=== PATIENT | female | born 1945 | race African-American/Black ===

== ENCOUNTER 2017-10-27 09:18 | Emergency (ER) | payer MEDICARE, OTHER ==
[2017-10-27] MEDS ORDERED: SODIUM CHLORIDE 0.9% 1,000 ML IV STA (09:37)
[2017-10-27] MEDS ORDERED: cloNIDine HCL 0.2 MG TAB PO STA (09:37)
--- NOTE | 2017-10-27 09:39 | ED ---
General Adult HPI - General Stated complaint: shoulder pain Time Seen by Provider: 10/27/17 09:23 Source: patient, RN notes reviewed, old records reviewed Mode of arrival: EMS Limitations: no limitations - History of Present Illness Initial comments: This is a 72-year-old female presents emergency department today with chief complaint of left shoulder pain for the past 2-3 months. Patient states that she was tired of the pain and felt she needed to be seen today. She denies any chest pain or shortness breath. Patient does arrive hypertensive, 220 over 03/2007. Patient states that she has no back or chest pain at this time. Patient states that pain is worse with range of motion of her shoulder. She is relatively a poor historian. She does not relate that she is on any blood pressure medications however review her chart shows that she is on spironolactone and metoprolol. - Related Data Home Medications Medication Instructions Recorded Confirmed Acetaminophen Tab [Tylenol Tab] 325 mg PO Q6H PRN 10/27/17 10/27/17 Docusate [Colace] 100 mg PO DAILY 10/27/17 10/27/17 Metoprolol Succinate [Toprol Xl] 50 mg PO DAILY 10/27/17 10/27/17 Robafen 100mg/5ml 200 mg PO Q4H PRN 10/27/17 10/27/17 Spironolactone [Aldactone] 25 mg PO DAILY 10/27/17 10/27/17 Previous Rx's Medication Instructions Recorded Ibuprofen 600 mg PO TID #20 tablet 10/27/17 Allergies Allergy/AdvReac Type Severity Reaction Status Date / Time No Known Allergies Allergy Verified 10/27/17 10:07 Review of Systems ROS Statement: Those systems with pertinent positive or pertinent negative responses have been documented in the HPI. ROS Other: All systems not noted in ROS Statement are negative. Past Medical History Past Medical History: Hypertension Additional Past Medical History / Comment(s): schizophrenia History of Any Multi-Drug Resistant Organisms: None Reported Past Surgical History: Unable to Obtain Past Psychological History: Schizophrenia Smoking Status: Current every day smoker Past Alcohol Use History: None Reported Past Drug Use History: None Reported General Exam - General Exam Comments Initial Comments: This is a pleasant 32-year-old female. She is -[place]. Alert and oriented. Limitations: no limitations General appearance: alert, in no apparent distress Head exam: Present: atraumatic, normocephalic, normal inspection Eye exam: Present: normal appearance, PERRL, EOMI. Absent: scleral icterus, conjunctival injection, periorbital swelling ENT exam: Present: normal exam, mucous membranes moist Neck exam: Present: normal inspection Respiratory exam: Present: normal lung sounds bilaterally. Absent: respiratory distress, wheezes, rales, rhonchi, stridor Cardiovascular Exam: Present: regular rate, normal rhythm, normal heart sounds. Absent: systolic murmur, diastolic murmur, rubs, gallop, clicks GI/Abdominal exam: Present: soft, normal bowel sounds. Absent: distended, tenderness, guarding, rebound, rigid Extremities exam: Present: normal inspection, full ROM, normal capillary refill , other (Patient has pain with range of motion of the left shoulder. Tender to palpation over the deltoid.). Absent: tenderness, pedal edema, joint swelling, calf tenderness Back exam: Present: normal inspection Neurological exam: Present: alert, oriented X3, CN II-XII intact Psychiatric exam: Present: normal affect, normal mood Skin exam: Present: warm, dry, intact, normal color. Absent: rash Course Vital Signs 10/27/17 10/27/17 09:23 10:50 Temperature 97.3 F L Pulse Rate 58 L 81 Respiratory 18 16 Rate Blood Pressure 228/110 148/67 O2 Sat by Pulse 99 100 Oximetry Medical Decision Making - Medical Decision Making 72-year-old female presented today with chief complaint of left shoulder pain for the past 3 months. The same EKG and lab values are reviewed and are unremarkable. Cardiac workup was negative. Chest x-ray was normal. Shoulder x -ray does show evidence of some arthritic changes. At this time Patient informed about her results. Acutely pain again is muscle skeletal is no nature. Patient will be discharged at this time with sling. She did arrive via EMS. The use contacting for rides home. Discharge her with anti- inflammatory medication. - Lab Data Result diagrams: 10/27/17 10:00 10/27/17 10:00 Lab Results 10/27/17 10/27/17 10/27/17 Range/Units 10:00 10:00 10:00 WBC 6.8 (3.8-10.6) k/uL RBC 5.20 (3.80-5.40) m/uL Hgb 13.8 (11.4-16.0) gm/dL Hct 42.8 (34.0-46.0) % MCV 82.3 (80.0-100.0) fL MCH 26.5 (25.0-35.0) pg MCHC 32.2 (31.0-37.0) g/dL RDW 14.4 (11.5-15.5) % Plt Count 318 (150-450) k/uL Neutrophils % 71 % Lymphocytes % 21 % Monocytes % 3 % Eosinophils % 3 % Basophils % 1 % Neutrophils # 4.8 (1.3-7.7) k/uL Lymphocytes # 1.4 (1.0-4.8) k/uL Monocytes # 0.2 (0-1.0) k/uL Eosinophils # 0.2 (0-0.7) k/uL Basophils # 0.1 (0-0.2) k/uL PT (9.0-12.0) sec INR (<1.2) APTT (22.0-30.0) sec Sodium 140 (137-145) mmol/L Potassium 4.0 (3.5-5.1) mmol/L Chloride 107 (98-107) mmol/L Carbon Dioxide 21 L (22-30) mmol/L Anion Gap 12 mmol/L BUN 13 (7-17) mg/dL Creatinine 0.86 (0.52-1.04) mg/dL Est GFR (CKD-EPI)AfAm 78 (>60 ml/min/1.73 sqM) Est GFR (CKD-EPI)NonAf 68 (>60 ml/min/1.73 sqM) Glucose 146 H (74-99) mg/dL Calcium 9.0 (8.4-10.2) mg/dL Magnesium 1.9 (1.6-2.3) mg/dL Total Bilirubin 0.4 (0.2-1.3) mg/dL AST 19 (14-36) U/L ALT 15 (9-52) U/L Alkaline Phosphatase 73 (38-126) U/L Total Creatine Kinase 53 (30-135) U/L CK-MB (CK-2) <0.2 (0.0-2.4) ng/mL CK-MB (CK-2) Rel Index Troponin I <0.012 (0.000-0.034) ng/mL NT-Pro-B Natriuret Pep pg/mL Total Protein 6.5 (6.3-8.2) g/dL Albumin 3.7 (3.5-5.0) g/dL 10/27/17 10/27/17 Range/Units 10:00 10:00 WBC (3.8-10.6) k/uL RBC (3.80-5.40) m/uL Hgb (11.4-16.0) gm/dL Hct (34.0-46.0) % MCV (80.0-100.0) fL MCH (25.0-35.0) pg MCHC (31.0-37.0) g/dL RDW (11.5-15.5) % Plt Count (150-450) k/uL Neutrophils % % Lymphocytes % % Monocytes % % Eosinophils % % Basophils % % Neutrophils # (1.3-7.7) k/uL Lymphocytes # (1.0-4.8) k/uL Monocytes # (0-1.0) k/uL Eosinophils # (0-0.7) k/uL Basophils # (0-0.2) k/uL PT 10.9 (9.0-12.0) sec INR 1.1 (<1.2) APTT 23.5 (22.0-30.0) sec Sodium (137-145) mmol/L Potassium (3.5-5.1) mmol/L Chloride (98-107) mmol/L Carbon Dioxide (22-30) mmol/L Anion Gap mmol/L BUN (7-17) mg/dL Creatinine (0.52-1.04) mg/dL Est GFR (CKD-EPI)AfAm (>60 ml/min/1.73 sqM) Est GFR (CKD-EPI)NonAf (>60 ml/min/1.73 sqM) Glucose (74-99) mg/dL Calcium (8.4-10.2) mg/dL Magnesium (1.6-2.3) mg/dL Total Bilirubin (0.2-1.3) mg/dL AST (14-36) U/L ALT (9-52) U/L Alkaline Phosphatase (38-126) U/L Total Creatine Kinase (30-135) U/L CK-MB (CK-2) (0.0-2.4) ng/mL CK-MB (CK-2) Rel Index Troponin I (0.000-0.034) ng/mL NT-Pro-B Natriuret Pep 64 pg/mL Total Protein (6.3-8.2) g/dL Albumin (3.5-5.0) g/dL 10/27/17 10:02 EKG shows sinus rhythm with sinus arrhythmia. Nonspecific T-wave abnormality. Abnormal EKG noted. Ventricular rate of 61 beats were minute period. Was a 56. QRS ration 80 ms. QT QTc is 334/336 ms. No evidence of ST elevation. Disposition Clinical Impression: Arthritis of left shoulder region Disposition: HOME SELF-CARE Condition: Good Instructions: Rotator Cuff Injury (ED) Additional Instructions: Patient advised to follow-up with primary care physician and operations support specialist. Return to the emergency department if any alarming signs or symptoms occur. Prescriptions: Ibuprofen 600 mg PO TID #20 tablet Is patient prescribed a controlled substance at d/c from ED?: No Referrals: Marlon Amos MD [Primary Care Provider] - 1-2 days Graham Levine MD [Medical Doctor] - 1-2 days Time of Disposition: 12:26
[2017-10-27 10:19] LABS: Basophils # (A) 0.1 k/uL (0-0.2); Basophils % (A) 1 %; Eosinophils # (A) 0.2 k/uL (0-0.7); Eosinophils % (A) 3 %; HCT 42.8 % (34.0-46.0); HGB 13.8 gm/dL (11.4-16.0); Lymphocytes # (A) 1.4 k/uL (1.0-4.8); Lymphocytes % (A) 21 %; MCH 26.5 pg (25.0-35.0); MCHC 32.2 g/dL (31.0-37.0); MCV 82.3 fL (80.0-100.0); Mean Platelet Volume 6.7; Monocytes # (A) 0.2 k/uL (0-1.0); Monocytes % (A) 3 %; Neutrophils # (A) 4.8 k/uL (1.3-7.7); Neutrophils % (A) 71 %; Platelet Count 318 k/uL (150-450); RDW 14.4 % (11.5-15.5); WBC 6.8 k/uL (3.8-10.6)
[2017-10-27 10:27] LABS: INR 1.1 (<1.2); Partial Thromboplastin Time 23.5 sec (22.0-30.0); Prothrombin Time 10.9 sec (9.0-12.0)
[2017-10-27 10:30] LABS: Albumin 3.7 g/dL (3.5-5.0); Magnesium 1.9 mg/dL (1.6-2.3); Total Bilirubin 0.4 mg/dL (0.2-1.3); Total Protein 6.5 g/dL (6.3-8.2)
[2017-10-27 10:52] LABS: Creatine Kinase 53 U/L (30-135)
[2017-10-27 11:05] LABS: Creatine Kinase MB <0.2 ng/mL (0.0-2.4); Troponin I <0.012 ng/mL (0.000-0.034)
--- NOTE | 2017-10-27 11:37 | XR ---
EXAMINATION TYPE: XR chest 2V DATE OF EXAM: 10/27/2017 COMPARISON: Chest x-ray July 18, 2012. HISTORY: Chest and left shoulder pain today. TECHNIQUE: Frontal and lateral views of the chest are obtained. FINDINGS: There is no focal air space opacity, pleural effusion, or pneumothorax seen. The cardiac silhouette size is stable and upper limits of normal. The osseous structures remain demineralized. IMPRESSION: No acute cardiopulmonary process. No significant change from prior.
--- NOTE | 2017-10-27 11:38 | XR ---
EXAMINATION TYPE: XR shoulder complete LT DATE OF EXAM: 10/27/2017 CLINICAL HISTORY: Chest and left shoulder pain today. TECHNIQUE: Three views of the left shoulder are obtained. COMPARISON: None. FINDINGS: There is no acute fracture/dislocation evident in the left shoulder. Demineralization is p resent. The acromioclavicular and glenohumeral joint spaces appear within normal limits. Some mild to moderate spurring from the acromion is felt present inferiorly. The visualized ribs are intact and unremarkable. IMPRESSION: As above.
[2017-10-27 12:44] VITALS: BP 142/78; PULSE 83; RESP 18; TEMP 97.8
== END 2017-10-27 12:43 | disposition home or self-care (01) ==
LOC: EC 09:18
DX: M19.012 Primary osteoarthritis, left shoulder (principal); R94.31 Abnormal electrocardiogram [ECG] [EKG]; I10 Essential (primary) hypertension; Z79.899 Other long term (current) drug therapy; F17.200 Nicotine dependence, unspecified, uncomplicated
CPT/HCPCS: 36415; 71046; 80053; 82550; 82553; 83735; 83880; 84484; 85025; 85610; 85730; 93005; 96360; 99285

== ENCOUNTER 2017-11-19 19:12 | Emergency (ER) | payer MEDICARE, OTHER ==
[2017-11-19] MEDS ORDERED: cloNIDine HCL 0.2 MG TAB PO STA (19:44)
[2017-11-19 20:35] LABS: Basophils # (A) 0.1 k/uL (0-0.2); Basophils % (A) 1 %; Eosinophils # (A) 0.2 k/uL (0-0.7); Eosinophils % (A) 2 %; HCT 39.2 % (34.0-46.0); HGB 12.5 gm/dL (11.4-16.0); Lymphocytes # (A) 1.7 k/uL (1.0-4.8); Lymphocytes % (A) 19 %; MCHC 31.8 g/dL (31.0-37.0); MCV 81.8 fL (80.0-100.0); Mean Platelet Volume 6.4; Monocytes # (A) 0.4 k/uL (0-1.0); Monocytes % (A) 5 %; Neutrophils # (A) 6.5 k/uL (1.3-7.7); Neutrophils % (A) 73 %; Platelet Count 343 k/uL (150-450); RBC 4.79 m/uL (3.80-5.40); RDW 14.2 % (11.5-15.5); WBC 8.9 k/uL (3.8-10.6)
[2017-11-19 20:43] LABS: INR 1.1 (<1.2); Prothrombin Time 10.4 sec (9.0-12.0)
[2017-11-19 20:44] LABS: Albumin 3.6 g/dL (3.5-5.0); Calcium 9.4 mg/dL (8.4-10.2); Potassium 3.5 mmol/L (3.5-5.1); Total Bilirubin 0.3 mg/dL (0.2-1.3); Total Protein 6.6 g/dL (6.3-8.2)
--- NOTE | 2017-11-19 20:47 | ED ---
General Adult HPI - General Chief complaint: Recheck/Abnormal Lab/Rx Stated complaint: hypertension Time Seen by Provider: 11/19/17 19:16 Source: patient, EMS Mode of arrival: EMS Limitations: no limitations - History of Present Illness Initial comments: Ms Ritchie is a 72yo female with PMH of HTN who presents to the ED today via EMS from her extended care facility for evaluation of asymptomatic hypertension. Patient reports that she's been in her usual state of health, she believes she has taken all of her regular medications. She has no complaints but was told that her blood pressure is too high and she had to come to the hospital. No one accompanies her from her alf facility to provide further history. Patient denies any headache, vision change, chest pain, shortness of breath, abdominal pain or change in urine output. - Related Data Home Medications Medication Instructions Recorded Confirmed Acetaminophen Tab [Tylenol Tab] 325 mg PO Q6H PRN 10/27/17 10/27/17 Docusate [Colace] 100 mg PO DAILY 10/27/17 10/27/17 Metoprolol Succinate [Toprol Xl] 50 mg PO DAILY 10/27/17 10/27/17 Robafen 100mg/5ml 200 mg PO Q4H PRN 10/27/17 10/27/17 Spironolactone [Aldactone] 25 mg PO DAILY 10/27/17 10/27/17 Previous Rx's Medication Instructions Recorded Ibuprofen 600 mg PO TID #20 tablet 10/27/17 Allergies Allergy/AdvReac Type Severity Reaction Status Date / Time No Known Allergies Allergy Verified 10/27/17 10:07 Review of Systems ROS Statement: Those systems with pertinent positive or pertinent negative responses have been documented in the HPI. ROS Other: All systems not noted in ROS Statement are negative. Past Medical History Past Medical History: Hypertension Additional Past Medical History / Comment(s): schizophrenia History of Any Multi-Drug Resistant Organisms: None Reported Past Surgical History: Unable to Obtain Past Psychological History: Schizophrenia Smoking Status: Unknown if ever smoked Past Alcohol Use History: None Reported Past Drug Use History: None Reported General Exam - General Exam Comments Initial Comments: GENERAL: Patient is well-developed and well-nourished. Patient is nontoxic and well- hydrated and is in no distress. HENT: Normocephalic, Atraumatic. Neck is soft and supple. No significant lymphadenopathy is noted. Oropharynx is clear. Moist mucous membranes. Neck has full range of motion without eliciting any pain. EYES: The sclera were anicteric and conjunctiva were pink and moist. Extraocular movements were intact and pupils were equal round and reactive to light. Eyelids were unremarkable. PULMONARY: Unlabored respirations. Good breath sounds bilaterally. No audible rales rhonchi or wheezing was noted. CARDIOVASCULAR: There is a regular rate and rhythm without any murmurs gallops or rubs. ABDOMEN: Soft and nontender with normal bowel sounds. SKIN: Skin is clear with no lesions or rashes and otherwise unremarkable. NEUROLOGIC: Alert and oriented to person, place and events leading up to coming to the hospital MUSCULOSKELETAL: Normal extremities with adequate strength and full range of motion. No lower extremity swelling or edema. No calf tenderness. LYMPHATICS: No significant lymphadenopathy is noted PSYCHIATRIC: Flat affect Limitations: no limitations Limitations: no limitations Course Vital Signs 11/19/17 11/19/17 11/19/17 19:15 19:45 20:33 Temperature 98.8 F Pulse Rate 64 64 87 Respiratory 17 17 17 Rate Blood Pressure 228/98 221/95 230/102 O2 Sat by Pulse 98 97 Oximetry 11/19/17 11/19/17 11/19/17 21:10 21:33 21:35 Temperature Pulse Rate 59 L 64 Respiratory 17 17 17 Rate Blood Pressure 240/116 188/81 172/94 O2 Sat by Pulse 98 98 98 Oximetry 11/19/17 11/19/17 21:49 22:32 Temperature 98.7 F Pulse Rate 66 64 Respiratory 17 18 Rate Blood Pressure 155/79 161/70 O2 Sat by Pulse 100 99 Oximetry EKG Findings - EKG Comments: EKG Findings:: EKG obtained at 1931 reveals sinus rhythm with a rate of 62 normal axis normal intervals no acute ST elevations or depressions there is flattening of the T waves in all leads. No evidence of acute ischemia or infarction. Medical Decision Making - Medical Decision Making The patient was seen and evaluated, presents obtained from the patient Patient with asymptomatic hypertension Labs ordered Clonidine was ordered and given with minimal improvement Patient's heart rate remained in the 60s, she is not a good candidate for IV Lopressor, IV enalapril was ordered Labs were unremarkable for mild hyperglycemia Patient's blood pressure improved significantly with IV enalapril remained asymptomatic with no complaints Patient's blood pressure significantly improved, patient stable for discharge home. Patient's long-term care facility was notified of plan for transfer back to their facility. - Lab Data Result diagrams: 11/19/17 20:22 11/19/17 20:22 Lab Results 11/19/17 11/19/17 11/19/17 Range/Units 20:22 20:22 20:22 WBC 8.9 (3.8-10.6) k/uL RBC 4.79 (3.80-5.40) m/uL Hgb 12.5 (11.4-16.0) gm/dL Hct 39.2 (34.0-46.0) % MCV 81.8 (80.0-100.0) fL MCH 26.0 (25.0-35.0) pg MCHC 31.8 (31.0-37.0) g/dL RDW 14.2 (11.5-15.5) % Plt Count 343 (150-450) k/uL Neutrophils % 73 % Lymphocytes % 19 % Monocytes % 5 % Eosinophils % 2 % Basophils % 1 % Neutrophils # 6.5 (1.3-7.7) k/uL Lymphocytes # 1.7 (1.0-4.8) k/uL Monocytes # 0.4 (0-1.0) k/uL Eosinophils # 0.2 (0-0.7) k/uL Basophils # 0.1 (0-0.2) k/uL PT 10.4 (9.0-12.0) sec INR 1.1 (<1.2) APTT 23.0 (22.0-30.0) sec Sodium 139 (137-145) mmol/L Potassium 3.5 (3.5-5.1) mmol/L Chloride 103 (98-107) mmol/L Carbon Dioxide 25 (22-30) mmol/L Anion Gap 11 mmol/L BUN 14 (7-17) mg/dL Creatinine 0.87 (0.52-1.04) mg/dL Est GFR (CKD-EPI)AfAm 77 (>60 ml/min/1.73 sqM) Est GFR (CKD-EPI)NonAf 66 (>60 ml/min/1.73 sqM) Glucose 142 H (74-99) mg/dL Calcium 9.4 (8.4-10.2) mg/dL Total Bilirubin 0.3 (0.2-1.3) mg/dL AST 14 (14-36) U/L ALT 22 (9-52) U/L Alkaline Phosphatase 78 (38-126) U/L Total Protein 6.6 (6.3-8.2) g/dL Albumin 3.6 (3.5-5.0) g/dL Disposition Clinical Impression: Hypertension Disposition: HOME SELF-CARE Condition: Good Instructions: Hypertension (ED) Is patient prescribed a controlled substance at d/c from ED?: No Referrals: Marlon Amos MD [Primary Care Provider] - 1-2 days Time of Disposition: 22:02
[2017-11-19] MEDS ORDERED: METOPROLOL TARTRATE 5 MG/5 ML VIAL IVP SCH (21:00)
[2017-11-19] MEDS ORDERED: ENALAPRILAT 1.25 MG/ML 1 ML VIAL IVP STA (21:12)
[2017-11-19] MEDS ORDERED: METOPROLOL TARTRATE 50 MG TAB PO STA (21:12)
[2017-11-19 22:33] VITALS: BP 161/70; PULSE 64; RESP 18; TEMP 98.7
== END 2017-11-19 22:40 | disposition home or self-care (01) ==
LOC: EEVIPCON 19:12 → EC 19:12
DX: I10 Essential (primary) hypertension (principal); Z79.899 Other long term (current) drug therapy
CPT/HCPCS: 36415; 80053; 85025; 85610; 85730; 96374; 99284

== ENCOUNTER 2018-02-18 17:49 | Observation (INO) | payer MEDICARE, OTHER ==
[2018-02-18] MEDS ORDERED: HYDROcodone/APAP 5-325MG 1 EACH TAB PO STA (18:17)
[2018-02-18] MEDS ORDERED: hydrALAZINE HCL 20 MG/ML 1 ML VIAL IVP STA (18:18)
--- NOTE | 2018-02-18 18:21 | ED ---
General Adult HPI - General Chief complaint: Recheck/Abnormal Lab/Rx Stated complaint: HTN Time Seen by Provider: 02/18/18 18:00 Source: patient, EMS Mode of arrival: EMS Limitations: physical limitation - History of Present Illness Initial comments: Patient is a 72-year-old female presenting for left arm pain. She presents from correction states that for the last 2-3 months, she has had left shoulder pain and denies any falls or trauma. She states that it is same as her chronic pain and is achy sensation without radiation. The pain is constant and is worse with movement. She denies any chest pain or shortness of breath as well. - Related Data Home Medications Medication Instructions Recorded Confirmed Acetaminophen Tab [Tylenol Tab] 325 mg PO Q6H PRN 10/27/17 02/18/18 Docusate [Colace] 100 mg PO DAILY 10/27/17 02/18/18 Metoprolol Succinate [Toprol Xl] 50 mg PO DAILY 10/27/17 02/18/18 Robafen 100mg/5ml 200 mg PO Q4H PRN 10/27/17 02/18/18 Spironolactone [Aldactone] 25 mg PO DAILY 10/27/17 02/18/18 Haloperidol Decanoate [Haldol 50 mg IM QMONTH 02/18/18 02/18/18 Decanoate] Lidocaine HCl [Aspercreme] 1 applic TOPICAL TID 02/18/18 02/18/18 Menthol [Biofreeze] 1 applic TOPICAL QID PRN 02/18/18 02/18/18 Allergies Allergy/AdvReac Type Severity Reaction Status Date / Time No Known Allergies Allergy Verified 02/18/18 18:12 Review of Systems ROS Statement: Those systems with pertinent positive or pertinent negative responses have been documented in the HPI. Constitutional: Negative for chills, fatigue and fever. HENT: Negative for congestion. Respiratory: Negative for chest tightness, shortness of breath and wheezing. Negative for cough Cardiovascular: Negative for chest pain and palpitations. Gastrointestinal: Negative for abdominal pain. Negative for abdominal distention , diarrhea, nausea and vomiting. Genitourinary: Negative for dysuria. Musculoskeletal: Negative for back pain, neck pain and neck stiffness. Positive for left arm pain Skin: Negative for color change. Neurological: Negative for dizziness, speech difficulty, weakness and light- headedness. Psychiatric/Behavioral: Negative for agitation and confusion. Negative for anxiety ROS Other: All systems not noted in ROS Statement are negative. Past Medical History Past Medical History: Hypertension Additional Past Medical History / Comment(s): schizophrenia History of Any Multi-Drug Resistant Organisms: None Reported Past Surgical History: Unable to Obtain Past Psychological History: Schizophrenia Smoking Status: Unknown if ever smoked Past Alcohol Use History: None Reported Past Drug Use History: None Reported General Exam - General Exam Comments Initial Comments: Constitutional: Pt is oriented to person, place, and time. Pt appears well- developed and well-nourished. No distress. HENT: Head: Normocephalic and atraumatic. Eyes: EOM are normal. Neck: Normal range of motion. Neck supple. Cardiovascular: Normal rate, regular rhythm, S1 normal, S2 normal and normal heart sounds. Exam reveals no gallop and no friction rub. No murmur heard. Pulmonary/Chest: Effort normal and breath sounds normal. No tachypnea and no bradypnea. No respiratory distress. No wheezes or rales noted. Abdominal: Soft. Bowel sounds are normal. Pt exhibits no shifting dullness, no distension, no pulsatile liver, no fluid wave, no abdominal bruit and no ascites. There is no tenderness. There is no rigidity, no rebound, no guarding, no tenderness at McBurney's point and negative Lemus's sign. Musculoskeletal: Normal range of motion.NO TTP of L shoulder or arm Neurological: Pt is alert and oriented to place, and time. No cranial nerve deficit. Skin: Skin is warm and dry. No rash noted. Pt is not diaphoretic. No erythema. No pallor. Psychiatric: Pt has a normal mood and affect. Pt behavior is normal. Thought content normal. Limitations: physical limitation Course Vital Signs 02/18/18 02/18/18 02/18/18 18:00 18:30 19:06 Temperature 98.2 F Pulse Rate 55 L 88 73 Respiratory 18 20 20 Rate Blood Pressure 201/114 194/133 179/99 O2 Sat by Pulse 99 99 99 Oximetry 02/18/18 02/18/18 02/18/18 19:30 19:45 20:00 Temperature Pulse Rate 76 68 63 Respiratory 20 14 20 Rate Blood Pressure 177/79 161/92 154/83 O2 Sat by Pulse 99 99 99 Oximetry EKG Findings - EKG Comments: EKG Findings:: EKG shows a sinus bradycardia of a rate of 54 bpm, MD interval 162, QRS 74 ms, QTC 434. There are no significant ST depressions or elevations. Medical Decision Making - Medical Decision Making Laboratory studies showed that there is no significant leukocytosis, Y derangements and there is no evidence of cardiac arrhythmia on EKG. Initial troponin was also noted to be negative and humerus x-ray was negative as well. However, the patient had a single episode while in x-ray where she completely lost consciousness although she did not fall and hit her head as x-ray technicians caught her. It is unclear whether this is secondary to the blood pressure medications and Waelder but it is thought that this is less likely as the patient had her blood pressure checked just before going to x-ray and it was not significantly changed. Nonetheless, because of this and the patient's comorbidities, patient will be placed in observation. She is also put on maintenance fluid.Explained all labs and diagnostic test results and that we will admit patient to hospital. Pt is agreeable to plan and case has been discussed with Dr. Sutton and they agree to accept the pt. - Lab Data Result diagrams: 02/18/18 18:44 02/18/18 18:44 Lab Results 02/18/18 02/18/18 02/18/18 Range/Units 18:44 18:44 18:44 WBC 8.9 (3.8-10.6) k/uL RBC 5.19 (3.80-5.40) m/uL Hgb 13.9 (11.4-16.0) gm/dL Hct 42.8 (34.0-46.0) % MCV 82.3 (80.0-100.0) fL MCH 26.7 (25.0-35.0) pg MCHC 32.4 (31.0-37.0) g/dL RDW 14.1 (11.5-15.5) % Plt Count 356 (150-450) k/uL Neutrophils % 67 % Lymphocytes % 24 % Monocytes % 5 % Eosinophils % 2 % Basophils % 1 % Neutrophils # 6.0 (1.3-7.7) k/uL Lymphocytes # 2.1 (1.0-4.8) k/uL Monocytes # 0.4 (0-1.0) k/uL Eosinophils # 0.2 (0-0.7) k/uL Basophils # 0.1 (0-0.2) k/uL PT 10.5 (9.0-12.0) sec INR 1.1 (<1.2) APTT 24.4 (22.0-30.0) sec Sodium 142 (137-145) mmol/L Potassium 4.8 (3.5-5.1) mmol/L Chloride 107 (98-107) mmol/L Carbon Dioxide 25 (22-30) mmol/L Anion Gap 10 mmol/L BUN 11 (7-17) mg/dL Creatinine 0.93 (0.52-1.04) mg/dL Est GFR (CKD-EPI)AfAm 71 (>60 ml/min/1.73 sqM) Est GFR (CKD-EPI)NonAf 62 (>60 ml/min/1.73 sqM) Glucose 99 (74-99) mg/dL Calcium 9.9 (8.4-10.2) mg/dL Magnesium 2.1 (1.6-2.3) mg/dL Total Bilirubin 0.6 (0.2-1.3) mg/dL AST 16 (14-36) U/L ALT 22 (9-52) U/L Alkaline Phosphatase 88 (38-126) U/L Troponin I (0.000-0.034) ng/mL Total Protein 7.3 (6.3-8.2) g/dL Albumin 4.0 (3.5-5.0) g/dL 02/18/18 Range/Units 18:44 WBC (3.8-10.6) k/uL RBC (3.80-5.40) m/uL Hgb (11.4-16.0) gm/dL Hct (34.0-46.0) % MCV (80.0-100.0) fL MCH (25.0-35.0) pg MCHC (31.0-37.0) g/dL RDW (11.5-15.5) % Plt Count (150-450) k/uL Neutrophils % % Lymphocytes % % Monocytes % % Eosinophils % % Basophils % % Neutrophils # (1.3-7.7) k/uL Lymphocytes # (1.0-4.8) k/uL Monocytes # (0-1.0) k/uL Eosinophils # (0-0.7) k/uL Basophils # (0-0.2) k/uL PT (9.0-12.0) sec INR (<1.2) APTT (22.0-30.0) sec Sodium (137-145) mmol/L Potassium (3.5-5.1) mmol/L Chloride (98-107) mmol/L Carbon Dioxide (22-30) mmol/L Anion Gap mmol/L BUN (7-17) mg/dL Creatinine (0.52-1.04) mg/dL Est GFR (CKD-EPI)AfAm (>60 ml/min/1.73 sqM) Est GFR (CKD-EPI)NonAf (>60 ml/min/1.73 sqM) Glucose (74-99) mg/dL Calcium (8.4-10.2) mg/dL Magnesium (1.6-2.3) mg/dL Total Bilirubin (0.2-1.3) mg/dL AST (14-36) U/L ALT (9-52) U/L Alkaline Phosphatase (38-126) U/L Troponin I <0.012 (0.000-0.034) ng/mL Total Protein (6.3-8.2) g/dL Albumin (3.5-5.0) g/dL Disposition Clinical Impression: Syncope, Left arm pain Disposition: ADMITTED IP TO THIS [facility] Condition: Fair Referrals: Marlon Amos MD [Primary Care Provider] - 1-2 days Decision to Admit Reason: Admit from EC Decision Date: 02/18/18 Decision Time: 21:28
[2018-02-18 19:15] LABS: Basophils # (A) 0.1 k/uL (0-0.2); Basophils % (A) 1 %; Eosinophils # (A) 0.2 k/uL (0-0.7); Eosinophils % (A) 2 %; HCT 42.8 % (34.0-46.0); HGB 13.9 gm/dL (11.4-16.0); Lymphocytes # (A) 2.1 k/uL (1.0-4.8); Lymphocytes % (A) 24 %; MCH 26.7 pg (25.0-35.0); MCHC 32.4 g/dL (31.0-37.0); MCV 82.3 fL (80.0-100.0); Mean Platelet Volume 6.7; Monocytes # (A) 0.4 k/uL (0-1.0); Monocytes % (A) 5 %; Neutrophils % (A) 67 %; Platelet Count 356 k/uL (150-450); RBC 5.19 m/uL (3.80-5.40); RDW 14.1 % (11.5-15.5); WBC 8.9 k/uL (3.8-10.6)
[2018-02-18 19:25] LABS: INR 1.1 (<1.2); Partial Thromboplastin Time 24.4 sec (22.0-30.0); Prothrombin Time 10.5 sec (9.0-12.0)
[2018-02-18 19:34] LABS: Calcium 9.9 mg/dL (8.4-10.2); Magnesium 2.1 mg/dL (1.6-2.3); Potassium 4.8 mmol/L (3.5-5.1); Total Bilirubin 0.6 mg/dL (0.2-1.3); Total Protein 7.3 g/dL (6.3-8.2)
--- NOTE | 2018-02-18 20:01 | XR ---
EXAMINATION TYPE: XR humerus LT DATE OF EXAM: 02/18/2018 CLINICAL HISTORY: Left shoulder pain TECHNIQUE: Two views of the left humerus are obtained. COMPARISON: None. FINDINGS: No acute fracture or dislocation. No soft tissue swelling or radiopaque foreign bodies. The limited evaluation of the left-sided ribs are unremarkable. No suspicious osseous lesions. IMPRESSION: No acute fracture or dislocation of left humerus.
[2018-02-18] MEDS ORDERED: SODIUM CHLORIDE 0.9% 1,000 ML IV STA (21:22)
[2018-02-18] MEDS ORDERED: NALOXONE 0.4 MG/ML 1 ML VIAL IV PRN (21:23)
[2018-02-19] MEDS ORDERED: ACETAMINOPHEN TAB 325 MG TAB PO PRN (09:31)
[2018-02-19] MEDS: METOPROLOL SUCCINATE (ER) 50 MG TAB.ER.24H PO SCH (10:48)
[2018-02-19] MEDS: SPIRONOLACTONE 25 MG TAB PO SCH (10:48)
[2018-02-19] MEDS: ENOXAPARIN 40 MG/0.4 ML SYRINGE SQ SCH (18:58)
[2018-02-19] MEDS: DOCUSATE 100 MG CAP PO SCH (19:00)
--- NOTE | 2018-02-19 21:04 | HP ---
HISTORY AND PHYSICAL DATE OF ADMISSION: 02/18/2018 DATE OF SERVICE: 02/19/2018 PRESENTING COMPLAINT: Left shoulder pain. HISTORY OF PRESENTING COMPLAINT: This is a 72-year-old patient who follows with visiting physician Dr. Amos. Chronic stable medical conditions include hypertension, schizophrenia and arthritis. The patient is not the best of historians. Lives at [place]. The patient comes in with complaints of pain in the left shoulder. She thinks she has had this pain for a few weeks. It is worse when she moves the pain. Some pain in the adjoining area. No shortness of breath. No dizziness, lightheadedness. The patient admitted from the ER to rule out a cardiac cause. Pain not necessarily related to exertion. No shortness of breath. REVIEW OF SYSTEMS: CONSTITUTIONAL: None. HEENT: None. RESPIRATORY: None. CARDIOVASCULAR: As above. GASTROINTESTINAL: None. GENITOURINARY: None. MUSCULOSKELETAL: Pain in joints including left shoulder. DERMATOLOGICAL: None. HEMATOLOGICAL: None. PSYCHIATRY: Slightly forgetful. NEUROLOGICAL none. PAST MEDICAL HISTORY: Hypertension, schizophrenia, arthritis. PAST SURGICAL HISTORY: Patient does not remember. SOCIAL HISTORY: Does not smoke or drink alcohol. Lives at [place]. FAMILY HISTORY: Patient does not remember. HOME MEDICATIONS: 1. Robafen 200 mg p.o. q.4 p.r.n. 2. Tylenol 325 p.o. q.6h p.r.n. 3. Biofreeze application topical q.i.d. p.r.n. 4. Haldol 50 mg IM Q monthly. 5. Aldactone 25 mg p.o. daily. 6. Toprol-XL 50 mg p.o. daily. 7. Aspercreme 1 application topical t.i.d. 8. Colace 100 mg p.o. daily. ALLERGIES: None. PHYSICAL EXAMINATION: VITAL SIGNS: Vital signs on presentation, temperature 98.2, pulse 55, respiratory 18, blood pressure 201/104. Pulse ox 99% on room air. Repeat blood pressure did come down to 154/83. GENERAL APPEARANCE: Average build, lying in bed, awake, tired-appearing. EYES: Pupils are equal. Conjunctivae normal. HEENT: External appearance of nose and ears normal. Oral cavity normal. NECK: JVD not raised. Mass not palpable. RESPIRATORY: Effort normal. LUNGS: Fair entry. CARDIOVASCULAR: 1st and 2nd sounds normal. No edema. ABDOMEN: Soft, nontender. Liver and spleen not palpable. LYMPHATICS: No lymph nodes palpable in the neck and axilla. PSYCHIATRY: Patient is able to answer simple questions. NEUROLOGICAL: Pupils equal. Cranial nerves grossly intact. Power and sensation grossly intact. MUSCULOSKELETAL: Evidence of osteoarthritis in the hands and knees. The patient has got limited range of motion of the left shoulder. LABORATORY DATA: White count 8.9, hemoglobin 13.9, potassium 4.8. Troponin x2 negative. EKG tracing personally reviewed by me shows nonspecific T-wave abnormality. Humerus x-ray no fracture noted. ASSESSMENT: 1. Left shoulder pain could be rotator cuff injury. We will get an orthopedic opinion. 2. Rule out a cardiac cause for presentation. 3. Essential hypertension. 4. Chronic schizophrenia. 5. Primary osteoarthritis. PLAN: Home medications are resumed. Serial cardiac enzymes are in place. We will get Cardiology and Orthopedic opinion. MMODL / IJN: [id number] /
[2018-02-19] MEDS: LIDOCAINE 4% CREAM 5 GM TUBE TOPICAL SCH (22:02)
[2018-02-20 03:22] VITALS: TEMP 98.3
[2018-02-20] MEDS ORDERED: DOBUTamine DRIP for NUC MED 500 MG in DEXTROSE/WATER 1 250ML.BAG IV ONE (08:32)
[2018-02-20] MEDS ORDERED: amLODIPine 5 MG TAB PO SCH (09:00)
--- NOTE | 2018-02-20 10:29 | P.CRDCN ---
History of Present Illness History of present illness: This is a pleasant 72-year-old female past medical history significant for hypertension and schizophrenia. She denies history of coronary artery disease, diabetes mellitus or dyslipidemia. She is somewhat of a poor historian. We have been asked to see her in consultation for chest pain. She states there has been a pain in the left shoulder for the last 3-4 months intermittently, worse with movement of the left arm. No specific trauma or injury she can recall. Denies chest pain, back pain, neck pain, lower arm pain, shortness of breath, dizziness, nausea, vomiting or palpitations. At the time of my exam she is seen and examined resting comfortably in bed in no acute distress. There is pain in the left shoulder with movement of the arm. Upon arrival to the emergency department blood pressure was 201/114 over 94/133. EKG reveals sinus mechanism with nonspecific T-wave abnormalities and left axis deviation. X-ray of the humerus is negative for an acute fracture or dislocation. Laboratory data reviewed, WBC 9, hemoglobin 13.66, sodium 142, potassium 4.8, magnesium 2.1, creatinine 0.93, cardiac enzymes negative 3. Current cardiac medications include Toprol 50 mg daily and Aldactone 25 mg daily. At the time of my exam: CONSTITUTIONAL: Denies fever. Denies chills. EYES: Denies blurred vision. Denies vision changes. Denies eye pain. EARS, NOSE, MOUTH & THROAT: Denies headache. Denies sore throat. Denies ear pain. CARDIOVASCULAR: Denies chest pain. Denies shortness of breath. Denies orthopnea. Denies PND. Denies palpitations. RESPIRATORY: Denies cough. GASTROINTESTINAL: Denies abdominal pain. Denies diarrhea. Denies constipation. Denies nausea. Denies vomiting. MUSCULOSKELETAL: Denies myalgias. INTEGUMENTARY: Denies pruitis. Denies rash. NEUROLOGIC: Denies numbness. Denies tingling. Denies weakness. PSYCHIATRIC: Denies anxiety. Denies depression. ENDOCRINE: Denies fatigue. Denies weight change. Denies polydipsia. Denies polyurina. GENITOURINARY: Denies burning, hematuria or urgency with micturation. HEMATOLOGIC: Denies history of anemia. Denies bleeding. Blood pressure 177/128 heart rate 70 afebrile maintaining oxygen saturation on room air GENERAL: This is a 72-year-old -[place] female in no apparent distress at the time of my examination. HEENT: Head is atraumatic, normocephalic. Pupils are equal, round. Sclerae anicteric. Conjunctivae are clear. Mucous membranes of the mouth are moist. Neck is supple. There is no jugular venous distention. No carotid bruit is heard. LUNGS: Clear to auscultation no wheezes, rales or rhonchi. No chest wall tenderness is noted on palpation or with deep breathing. HEART: Regular rate and rhythm without murmurs, rubs or gallops. S1 and S2 heard. ABDOMEN: Soft, nontender. Bowel sounds are heard. No organomegaly noted. EXTREMITIES: No evidence of peripheral edema and no calf tenderness noted. VASCULAR: Radial and dorsalis pedis pulses palpated, no evidence of clubbing. NEUROLOGIC: Patient is awake, alert and oriented x3. ASSESSMENT Left shoulder pain, reproducible and seems to be related to musckuloskeletal process. Hypertension, uncontrolled Schizophrenia PLAN An acute coronary event has been ruled out with no EKG evidence of ischemia and negative cardiac enzymes. Add amlodipine 5 mg daily and repeat blood pressure. Obtain 2D echocardiogram and doppler study to assess cardiac structure and function. Perform dobutamine stress echocardiogram to assess for stress induced ischemia. If stress test is normal she is stable from a cardiac perspective. Ongoing medical management of musculoskeltal shoulder pain. Nurse Practitioner note has been reviewed, I agree with a documented findings and plan of care. Patient was seen and examined. Past Medical History Past Medical History: Hypertension Additional Past Medical History / Comment(s): schizophrenia History of Any Multi-Drug Resistant Organisms: None Reported Past Surgical History: Unable to Obtain Past Psychological History: Schizophrenia Smoking Status: Never smoker Past Alcohol Use History: None Reported Past Drug Use History: None Reported Medications and Allergies Home Medications Medication Instructions Recorded Confirmed Type Acetaminophen Tab [Tylenol Tab] 325 mg PO Q6H PRN 10/27/17 02/18/18 History Docusate [Colace] 100 mg PO DAILY 10/27/17 02/18/18 History Metoprolol Succinate [Toprol Xl] 50 mg PO DAILY 10/27/17 02/18/18 History Robafen 100mg/5ml 200 mg PO Q4H PRN 10/27/17 02/18/18 History Spironolactone [Aldactone] 25 mg PO DAILY 10/27/17 02/18/18 History Haloperidol Decanoate [Haldol 50 mg IM QMONTH 02/18/18 02/18/18 History Decanoate] Lidocaine HCl [Aspercreme] 1 applic TOPICAL TID 02/18/18 02/18/18 History Menthol [Biofreeze] 1 applic TOPICAL QID PRN 02/18/18 02/18/18 History Allergies Allergy/AdvReac Type Severity Reaction Status Date / Time No Known Allergies Allergy Verified 02/18/18 18:12 Physical Exam Vitals: Vital Signs Temp Pulse Pulse Resp BP BP BP 02/20/18 07:32 98.3 F 57 L 15 177/128 02/20/18 03:22 16 02/20/18 03:21 98.3 F 62 16 168/94 02/20/18 00:00 98.1 F 54 L 16 148/70 02/19/18 23:32 16 02/19/18 20:00 98.3 F 62 16 02/19/18 18:28 65 178/63 02/19/18 17:29 97.8 F 63 17 02/19/18 15:26 98.1 F 89 18 168/85 02/19/18 10:49 86 20 173/82 02/19/18 08:47 98 F 79 20 191/105 BP Pulse Ox 02/20/18 07:32 98 02/20/18 03:22 02/20/18 03:21 98 02/20/18 00:00 97 02/19/18 23:32 02/19/18 20:00 155/82 95 02/19/18 18:28 02/19/18 17:29 200/100 98 02/19/18 15:26 97 02/19/18 10:49 100 02/19/18 08:47 100 Intake and Output 02/19/18 02/20/18 02/20/18 22:59 06:59 14:59 Intake Total 360 Balance 360 Intake: Oral 360 Other: Voiding Method Toilet Toilet # Voids 4 2 Weight 87.09 kg Results 02/18/18 18:44 02/18/18 18:44 Cardiac Enzymes 02/19/18 Range/Units 22:25 Troponin I <0.012 (0.000-0.034) ng/mL Current Medications Generic Name Dose Route Start Last Admin Trade Name Freq PRN Reason Stop Dose Admin Acetaminophen 325 mg 02/19/18 09:31 02/19/18 10:48 Tylenol Tab PO 325 mg Q6HR PRN Administration Fever and/ or Pain Docusate Sodium 100 mg 02/19/18 17:45 02/19/18 19:00 Colace PO 100 mg DAILY MADISYN Administration Enoxaparin Sodium 40 mg 02/19/18 17:45 02/19/18 18:58 Lovenox SQ 40 mg DAILY MADISYN Administration Lidocaine HCl 1 applic 02/19/18 22:00 02/19/18 22:02 Lmx 4 TOPICAL Not Given TID [facility] Metoprolol Succinate 50 mg 02/19/18 09:45 02/19/18 10:48 Toprol Xl PO 50 mg DAILY MADISYN Administration Naloxone HCl 0.2 mg 02/18/18 21:23 Narcan IV Q2M PRN Opioid Reversal Spironolactone 25 mg 02/19/18 09:45 02/19/18 10:48 Aldactone PO 25 mg DAILY MADISYN Administration Intake and Output 02/19/18 02/20/18 02/20/18 22:59 06:59 14:59 Intake Total 360 Balance 360 Intake: Oral 360 Other: Voiding Method Toilet Toilet # Voids 4 2 Weight 87.09 kg 02/18/18 18:44 02/18/18 18:44
--- NOTE | 2018-02-20 11:06 | ECHOF ---
Referral Reason:htn MEASUREMENTS -------- HEIGHT: 172.7 cm WEIGHT: 87.1 kg BP: 177/128 RVIDd: 2.7 cm (< 3.3) IVSd: 1.2 cm (0.6 - 1.1) LVIDd: 4.6 cm (3.9 - 5.3) LVPWd: 1.1 cm (0.6 - 1.1) IVSs: 1.5 cm LVIDs: 2.9 cm LVPWs: 1.1 cm LA Diam: 2.9 cm (2.7 - 3.8) LAESV Index (A-L): 23.65 ml/m Ao Diam: 3.2 cm (2.0 - 3.7) AV Cusp: 1.8 cm (1.5 - 2.6) LA Diam: 3.8 cm (2.7 - 3.8) MV EXCURSION: 10.412 mm (> 18.000) MV EF SLOPE: 46 mm/s (70 - 150) EPSS: 0.3 cm MV E Jl: 0.86 m/s MV DecT: 216 ms MV A Jl: 0.98 m/s MV E/A Ratio: 0.87 RAP: 5.00 mmHg RVSP: 23.58 mmHg FINDINGS -------- Sinus rhythm. This was a technically adequate study. The left ventricular size is normal. There is mild concentric left ventricular hypertrophy. Overa ll left ventricular systolic function is normal with, an EF between 55 - 60 %. The right ventricle is normal in size. The left atrial size is normal. The right atrial size is normal. The aortic valve is trileaflet, and appears structurally normal. No aortic stenosis or regurgitation. The mitral valve is normal. Mild mitral regurgitation is present. Mild tricuspid regurgitation present. There is no evidence of pulmonary hypertension. The right v entricular systolic pressure, as measured by Doppler, is 23.58mmHg. There is no pulmonic regurgitation present. The aortic root size is normal. Echo free space represents a pericardial fat pad. CONCLUSIONS -------- 1. Sinus rhythm. 2. The left ventricular size is normal. 3. There is mild concentric left ventricular hypertrophy. 4. Overall left ventricular systolic function is normal with, an EF between 55 - 60 %. 5. The left atrial size is normal. 6. The right atrial size is normal. 7. The aortic valve is trileaflet, and appears structurally normal. No aortic stenosis or regurgitati on. 8. Mild mitral regurgitation is present. 9. Mild tricuspid regurgitation present. 10. There is no evidence of pulmonary hypertension. 11. There is no pulmonic regurgitation present. 12. The aortic root size is normal. 13. Echo free space represents a pericardial fat pad. HYDRO ELECTRIC STATION OPERATOR: Maria Luz Alvarez RDCS
[2018-02-20 11:53] LABS: Cholesterol 185 mg/dL (<200); HDL Cholesterol 44 mg/dL (40-60); LDL Cholesterol,Calculated 122 mg/dL (0-99); Triglycerides 96 mg/dL (<150)
[2018-02-20 12:58] VITALS: RESP 18
[2018-02-20] MEDS: ENOXAPARIN 40 MG/0.4 ML SYRINGE SQ SCH (13:09)
[2018-02-20] MEDS: SPIRONOLACTONE 25 MG TAB PO SCH (13:09)
[2018-02-20] MEDS: DOCUSATE 100 MG CAP PO SCH (13:09)
[2018-02-20] MEDS: METOPROLOL SUCCINATE (ER) 50 MG TAB.ER.24H PO SCH (13:09)
[2018-02-20] MEDS: LIDOCAINE 4% CREAM 5 GM TUBE TOPICAL SCH ×2 (13:10→17:02)
--- NOTE | 2018-02-20 14:29 | ECHOS ---
STRESS ECHOCARDIOGRAM INDICATIONS: Chest pain. BASELINE HEART RATE: 59 BASELINE BLOOD PRESSURE: 161/91 MAXIMUM HEART RATE: 128 MAXIMUM BLOOD PRESSURE: 205/58 85% MPHR: 125 100% MPHR: 147 MAXIMUM STAGE REACHED: III TOTAL EXERCISE TIME: 9:49 CLINICAL INFORMATION: 1. Baseline rhythm is sinus mechanism, rate 59, normal axis and intervals, nonspecific ST-T wave changes. Rare PVCs. Baseline blood pressure 161/91 mmHg. Patient received an infusion of dobutamine. Electrocardiograph monitoring revealed occasional premature ventricular contractions. There was no evidence of diagnostic ischemic ST deviation. The patient reached a peak rate of 128 beats per minute which is equal to 87% of maximum predicted heart rate. 2. Peak blood pressure 205/58 mmHg. .. FINDINGS: Baseline echocardiogram revealed normal wall motion. At peak exercise, there was normal wall motion augmentation with no hypokinesis or dyskinesis. CONCLUSION: 1. Normal cardiac response to dobutamine infusion. 2. Normal stress echocardiogram with no evidence of stress-induced ischemia. MMODL / IJN: [id number] /
[2018-02-20] MEDS ORDERED: ATORVASTATIN 40 MG TAB PO SCH (14:45)
--- NOTE | 2018-02-20 14:50 | P.CNOR ---
History of Present Illness - [facility] Consult date: 02/20/18 Requesting physician: Júnior Lemus Consult reason: joint pain History of present illness: Patient is a 72-year-old female seen at bedside this afternoon consultation for left shoulder and arm pain. She was admitted through the emergency department on February 18 from her group home. She states she's had left shoulder and arm pain for the past 3 months or so. She does not recall any injury or trauma to the shoulder or arm. She has pain with range of motion of the left shoulder. She denies numbness or tingling. She has no other current complaints. Review of Systems All systems: negative Constitutional: Denies chills, Denies fever Eyes: denies blurred vision, denies pain Ears, nose, mouth and throat: Denies headache, Denies sore throat Cardiovascular: Denies chest pain, Denies shortness of breath Respiratory: Denies cough Gastrointestinal: Denies abdominal pain, Denies diarrhea, Denies nausea, Denies vomiting Genitourinary: Denies dysuria, Denies hematuria Musculoskeletal: Denies myalgias Integumentary: Denies pruritus, Denies rash Neurological: Denies numbness, Denies weakness Psychiatric: Denies anxiety, Denies depression Endocrine: Denies fatigue, Denies weight change Past Medical History Past Medical History: Hypertension Additional Past Medical History / Comment(s): schizophrenia History of Any Multi-Drug Resistant Organisms: None Reported Past Surgical History: Unable to Obtain Past Psychological History: Schizophrenia Smoking Status: Never smoker Past Alcohol Use History: None Reported Past Drug Use History: None Reported Medications and Allergies Home Medications Medication Instructions Recorded Confirmed Type Acetaminophen Tab [Tylenol Tab] 325 mg PO Q6H PRN 10/27/17 02/18/18 History Docusate [Colace] 100 mg PO DAILY 10/27/17 02/18/18 History Metoprolol Succinate [Toprol Xl] 50 mg PO DAILY 10/27/17 02/18/18 History Robafen 100mg/5ml 200 mg PO Q4H PRN 10/27/17 02/18/18 History Spironolactone [Aldactone] 25 mg PO DAILY 10/27/17 02/18/18 History Haloperidol Decanoate [Haldol 50 mg IM QMONTH 02/18/18 02/18/18 History Decanoate] Lidocaine HCl [Aspercreme] 1 applic TOPICAL TID 02/18/18 02/18/18 History Menthol [Biofreeze] 1 applic TOPICAL QID PRN 02/18/18 02/18/18 History Atorvastatin [Lipitor] 40 mg PO DAILY #90 tab 02/20/18 Rx Allergies Allergy/AdvReac Type Severity Reaction Status Date / Time No Known Allergies Allergy Verified 02/18/18 18:12 Physical Examination Inspection of the left shoulder and upper extremity is benign. There is no erythema or edema or deformity. There are no wounds. Passive range of motion shows forward elevation with minimal pain to 140. Passive abduction left shoulder to 80 with mild pain. Negative Wilder sign. Negative Neer's. She can internal and external rotate 30-40 with minimal pain. There is minimal tenderness throughout the shoulder and left upper extremity. It is not hot to touch. Motor and sensation is grossly intact with active shoulder abduction, bicep flexion, extension as well as full motor at the wrist, hand and fingers. Sensation to light touch is intact throughout the left upper extremity. There is no pathological reflexes. 2+ radial pulses present. There is less than 2 second capillary refill present. Results X-rays of the left shoulder and humerus show no fractures, lesions or masses. There is degenerative changes. No dislocation. - Labs Labs: Abnormal Lab Results - Last 24 Hours (Table) 02/18/18 Range/Units 18:44 LDL Cholesterol, Calc 122 H (0-99) mg/dL H & H 02/18/18 Range/Units 18:44 Hgb 13.9 (11.4-16.0) gm/dL Hct 42.8 (34.0-46.0) % Coagulation 02/18/18 Range/Units 18:44 INR 1.1 (<1.2) Result Diagrams: 02/18/18 18:44 02/18/18 18:44 Assessment and Plan (1) Left arm pain Narrative/Plan: It does not appear that she has a deficit to her left upper extremity as well as she has fairly good range of motion and x-rays are benign. It doesn't appear surgical intervention is immediately warranted. Would recommend trial of physical therapy. Pain management per primary team. She may follow up with our office as an outpatient as I instructed. Thank you. Current Visit: Yes Status: Acute Code(s): M79.602 - PAIN IN LEFT ARM SNOMED Code(s): 860138204 Time with Patient: Less than 30
[2018-02-20 15:43] VITALS: BP 151/94; PULSE 95
--- NOTE | 2018-02-21 05:41 | DS ---
DISCHARGE SUMMARY DATE OF ADMISSION: 02/18/2018 DATE OF DISCHARGE: 02/20/2018 FINAL DIAGNOSES: 1. Left shoulder pain, could be musculoskeletal. 2. Essential hypertension. 3. Chronic schizophrenia. 4. Primary osteoarthritis. HOSPITAL COURSE: This patient presented with left shoulder pain. Troponins were negative. LDL came back at 122. A 2-D echocardiogram showed the EF of 55% to 60%. X-ray of the left shoulder was unremarkable. Patient did undergo dobutamine stress echocardiogram negative for ischemia. The patient was cleared by Cardiology. CONSULTATIONS: Dr. Rodriguez from Cardiology and Dr. Júnior Lemus from Orthopedics for the left shoulder. Care was discussed with the patient. Questions were answered. PHYSICAL EXAMINATION: On examination, temperature 98.3, pulse 57, respiration 15, blood pressure 151/94, pulse ox 98% on room air. LUNGS: Fair entry. CARDIOVASCULAR: First and second sounds normal. DISCHARGE MEDICATIONS: 1. Tylenol 325 q.6 p.r.n. 2. Colace 100 mg p.o. daily. 3. Toprol XL 50 mg a day. 4. Robafen 200 mg q.4 p.r.n. 5. Aldactone 25 mg a day. 6. Haldol 50 mg IM q. monthly. 7. Lidocaine 1 application topical t.i.d. 8. Biofreeze topical q.i.d. p.r.n. 9. Lipitor 40 mg p.o. daily. 10.Norvasc 5 mg p.o. daily. Follow up with Dr. Rodriguez in 3 weeks; Dr. Amos from [facility] in 3 days; Dr. Lemus in one week. MMODL / IJN: [id number] /
== END 2018-02-20 17:22 | disposition home or self-care (01) ==
LOC: EC 17:49 → 1SOBS 21:28
PROVIDERS: ADMIT Hospitalist; ATTEND Hospitalist
DX: M25.512 Pain in left shoulder (principal); I10 Essential (primary) hypertension; G89.29 Other chronic pain; F20.9 Schizophrenia, unspecified; M79.602 Pain in left arm; M19.90 Unspecified osteoarthritis, unspecified site; M19.91 Primary osteoarthritis, unspecified site; Z79.899 Other long term (current) drug therapy
CPT/HCPCS: 93005 ×2; 96372 ×2; 96374; 99285; 36415; 93306; 93351; 80061; 80053; 83735; 84484 ×2; 85025; 85610; 85730; 73060; G0378 ×3; J1250; J0360; J1650 ×2

== ENCOUNTER 2021-09-30 10:29 | Inpatient (IN) | payer MEDICARE, OTHER ==
--- NOTE | 2021-09-30 10:52 | ED ---
General Adult HPI - General Chief complaint: Extremity Injury, Lower Stated complaint: Weakness, Leg Swelling Time Seen by Provider: 09/30/21 10:35 Source: patient, EMS, RN notes reviewed Mode of arrival: EMS Limitations: no limitations - History of Present Illness Initial comments: This a 76-year-old female presents emergency Department chief complaint of right foot pain. Patient states she's had soreness last 2 days states it hurts when she ambulates. Patient currently lives at [facility] which they called EMS to come for evaluation. Patient denies any trauma. She states she does not feel weak staff reports that she seems any more weak than usual. No chest pain of breath no fevers chills no nausea vomiting diarrhea constipation no other complaints. - Related Data Home Medications Medication Instructions Recorded Confirmed Acetaminophen Tab [Tylenol] 325 mg PO Q6H PRN 10/27/17 02/18/18 Docusate [Colace] 100 mg PO DAILY 10/27/17 02/18/18 Metoprolol Succinate [Toprol Xl] 50 mg PO DAILY 10/27/17 02/18/18 Robafen 100mg/5ml 200 mg PO Q4H PRN 10/27/17 02/18/18 Spironolactone [Aldactone] 25 mg PO DAILY 10/27/17 02/18/18 Haloperidol Decanoate [Haldol D] 50 mg IM QMONTH 02/18/18 02/18/18 Menthol [Biofreeze] 1 applic TOPICAL QID PRN 02/18/18 02/18/18 lidocaine HCL [Aspercreme 1 applic TOPICAL TID 02/18/18 02/18/18 Lidocaine] Previous Rx's Medication Instructions Recorded Atorvastatin [Lipitor] 40 mg PO DAILY #90 tab 02/20/18 amLODIPine [Norvasc] 5 mg PO DAILY #30 tab 02/20/18 Allergies Allergy/AdvReac Type Severity Reaction Status Date / Time No Known Allergies Allergy Verified 09/30/21 10:43 Review of Systems ROS Statement: Those systems with pertinent positive or pertinent negative responses have been documented in the HPI. ROS Other: All systems not noted in ROS Statement are negative. Past Medical History Past Medical History: Hypertension Additional Past Medical History / Comment(s): schizophrenia History of Any Multi-Drug Resistant Organisms: None Reported Past Surgical History: Unable to Obtain Past Psychological History: Schizophrenia Smoking Status: Unknown if ever smoked Past Alcohol Use History: None Reported Past Drug Use History: None Reported General Exam Limitations: no limitations General appearance: alert, in no apparent distress Head exam: Present: atraumatic, normocephalic, normal inspection Eye exam: Present: normal appearance, PERRL, EOMI. Absent: scleral icterus, conjunctival injection, periorbital swelling ENT exam: Present: normal exam, mucous membranes moist Neck exam: Present: normal inspection, full ROM. Absent: tenderness, meningismus, lymphadenopathy Respiratory exam: Present: normal lung sounds bilaterally. Absent: respiratory distress, wheezes, rales, rhonchi, stridor Cardiovascular Exam: Present: regular rate, normal rhythm, normal heart sounds. Absent: systolic murmur, diastolic murmur, rubs, gallop, clicks GI/Abdominal exam: Present: soft, normal bowel sounds. Absent: distended, tenderness, guarding, rebound, rigid Extremities exam: Present: other (Right foot no iris deformity neurovascular intact there is tenderness of the lateral portion of the foot there is no swelling no erythema no foreign body no ulcerations. No malleolar tenderness) Neurological exam: Present: alert Skin exam: Present: warm, dry, intact, normal color. Absent: rash Course Vital Signs 09/30/21 10:34 Temperature 98.0 F Pulse Rate 63 Respiratory 18 Rate Blood Pressure 128/74 O2 Sat by Pulse 96 Oximetry Medical Decision Making - Medical Decision Making 76-year-old presented for denies weakness from [facility]. Patient also complaints right foot pain. X-rays negative. Patient does have evidence of hyponatremia. Patient started maintenance fluids. Case discussed with Dr. Sutton - Lab Data Result diagrams: 09/30/21 10:49 09/30/21 10:49 Lab Results 09/30/21 09/30/21 Range/Units 10:49 10:49 WBC 7.7 (3.8-10.6) k/uL RBC 4.70 (3.80-5.40) m/uL Hgb 12.8 (11.4-16.0) gm/dL Hct 38.4 (34.0-46.0) % MCV 81.8 (80.0-100.0) fL MCH 27.3 (25.0-35.0) pg MCHC 33.4 (31.0-37.0) g/dL RDW 13.4 (11.5-15.5) % Plt Count 327 (150-450) k/uL MPV 6.4 Neutrophils % 64 % Lymphocytes % 26 % Monocytes % 6 % Eosinophils % 3 % Basophils % 1 % Neutrophils # 4.9 (1.3-7.7) k/uL Lymphocytes # 2.0 (1.0-4.8) k/uL Monocytes # 0.4 (0-1.0) k/uL Eosinophils # 0.2 (0-0.7) k/uL Basophils # 0.1 (0-0.2) k/uL Sodium 125 L (137-145) mmol/L Potassium 4.2 (3.5-5.1) mmol/L Chloride 92 L (98-107) mmol/L Carbon Dioxide 24 (22-30) mmol/L Anion Gap 9 mmol/L BUN 17 (7-17) mg/dL Creatinine 1.02 (0.52-1.04) mg/dL Est GFR (CKD-EPI)AfAm 62 (>60 ml/min/1.73 sqM) Est GFR (CKD-EPI)NonAf 54 (>60 ml/min/1.73 sqM) Glucose 108 H (74-99) mg/dL Calcium 9.1 (8.4-10.2) mg/dL Disposition Clinical Impression: Hyponatremia, Foot pain Disposition: ADMITTED IP TO THIS HOSP Condition: Fair Referrals: Marlon Amos MD [Primary Care Provider] - 1-2 days Time of Disposition: 11:34
[2021-09-30 11:02] LABS: Basophils # (A) 0.1 k/uL (0-0.2); Basophils % (A) 1 %; Eosinophils # (A) 0.2 k/uL (0-0.7); Eosinophils % (A) 3 %; HCT 38.4 % (34.0-46.0); HGB 12.8 gm/dL (11.4-16.0); Lymphocytes % (A) 26 %; MCH 27.3 pg (25.0-35.0); MCHC 33.4 g/dL (31.0-37.0); MCV 81.8 fL (80.0-100.0); Mean Platelet Volume 6.4; Monocytes # (A) 0.4 k/uL (0-1.0); Monocytes % (A) 6 %; Neutrophils # (A) 4.9 k/uL (1.3-7.7); Neutrophils % (A) 64 %; Platelet Count 327 k/uL (150-450); RDW 13.4 % (11.5-15.5); WBC 7.7 k/uL (3.8-10.6)
[2021-09-30 11:13] LABS: Calcium 9.1 mg/dL (8.4-10.2)
[2021-09-30 11:22] LABS: Potassium 4.2 mmol/L (3.5-5.1)
--- NOTE | 2021-09-30 11:34 | XR ---
EXAMINATION TYPE: XR foot complete RT DATE OF EXAM: 09/30/2021 CLINICAL HISTORY: Lateral pain. TECHNIQUE: Frontal, lateral, and oblique images of the right foot are obtained. COMPARISON: None FINDINGS: There is no acute fracture/dislocation evident in the right foot. The joint spaces in the right foot appear within normal limits. Accessory ossicles near medial base of navicular bone and la teral aspect of the cuboid bone are present. Small superior and inferior calcaneal spurs. Small spur at the lateral base of first proximal phalanx on oblique image. The overlying soft tissue appears unr emarkable. IMPRESSION: As above.
[2021-09-30] MEDS ORDERED: SODIUM CHLORIDE 0.9% 500 ML 500 ML IV ONE (12:14)
[2021-09-30] MEDS: SODIUM CHLORIDE 0.9% 1,000 ML IV SCH (12:31)
[2021-09-30] MEDS ORDERED: NALOXONE 0.4 MG/ML 1 ML VIAL IV PRN (15:46)
[2021-09-30] MEDS ORDERED: ACETAMINOPHEN TAB 325 MG TAB PO PRN (15:46)
[2021-09-30] MEDS ORDERED: CALCIUM CARBONATE 500 MG CHEWABLE PO PRN (15:46)
[2021-09-30] MEDS ORDERED: ONDANSETRON 4 MG/2 ML VIAL IVP PRN (15:46)
--- NOTE | 2021-09-30 16:02 | P.HPIM ---
History of Present Illness H&P Date: 09/30/21 Chief Complaint: Low-sodium This is a 76-year-old patient who follows with visiting physicians Dr. Amos. Chronic stable medical conditions include essential hypertension, schizophrenia, primary osteoarthritis. Patient is resident of [facility]. EMS was called out as patient complaining of pain in the right foot for last 2 days. Pain is more near the toes. Patient does seem to use a cane at times. Decreased appetite. Patient discovered to have a sodium of 125 in the ER. And a serum osmolality of 264. Denies any obvious nausea and vomiting. No fever no chills. Denies any obvious injury. This answered questions slowly. Review of systems: GEN.: Tired with decreased appetite EYES: None HEENT: None NECK: None RESPIRATORY: None CARDIOVASCULAR: None GASTROINTESTINAL: None GENITOURINARY: None MUSCULOSKELETAL: Joint pains LYMPHATICS: None HEMATOLOGICAL: None PSYCHIATRY: None NEUROLOGICAL: None Past medical history include: Osteoarthritis, schizophrenia, hypertension, latent TB Social history: No history of smoking or alcohol. Lives at [facility]. Family history: Reviewed, noncontributory to presentation Physical examination: VITAL SIGNS: 98, 63, 18, 128/74, 96% room air GENERAL: BMI 25.1, laying in bed awake tired. EYES: Pupils equal. Conjunctiva normal. HEENT: External appearance of nose and ears normal, oral cavity dry mucous membranes. NECK: JVD not raised; masses not palpable. HEART: First and second heart sounds are normal; no edema. LUNGS: Respiratory rate normal; clear to auscultation. ABDOMEN: Soft, nontender, liver spleen not palpable, no masses palpable. PSYCH: Answers questions slowly. Mood and affect flatl. MUSCULOSKELETAL:No Clubbing/cyanosis;muscles-grossly intact. Evidence of OA. Both landed feet NEUROLOGICAL: Cranial nerves grossly intact; no facial asymmetry, power and sensation grossly intact. LYMPHATICS: No lymph nodes palpable in the axilla and neck INVESTIGATIONS, reviewed in the clinical context: White count 7.7 hemoglobin 12.8 platelets 327 sodium 125 potassium 4.2 BUN 17 creatinine 1.02 serum osmolality 264 urine osmolality 238 EKG tracing personally reviewed by me-normal sinus rhythm. Rate 61 Foot x-ray film personally reviewed by me: Possibly early OA. Assessment and plan: -Hypoosmolar, hyponatremia, possibly hypovolemic. Patient is dry mucous membrane. Start patient on normal saline. Restrict free fluid. Add salt tablets. Repeat labs in the morning. DC hydrochlorothiazide. Hold Aldactone. -Right foot early osteoarthritis. We will advise comfortable footwear. Tylenol. Warm compress to right foot when necessary. -Essential hypertension Toprol-XL 50 mg twice a day -Chronic schizophrenia Seroquel 50 mg twice a day. -Chronic insomnia Melatonin 3 mg daily at bedtime -Primary osteoarthritis Tylenol when necessary. Voltaren gel Free fluid avoid. Normal saline. Sodium tablets. Resume all medications. Fall precautions. Repeat labs in the morning. Subcu heparin. Past Medical History Past Medical History: Hypertension, Osteoarthritis (OA) Additional Past Medical History / Comment(s): Latent TB/unable to take PPD/chest xrays are negative. History of Any Multi-Drug Resistant Organisms: None Reported Past Surgical History: Unable to Obtain Past Anesthesia/Blood Transfusion Reactions: Unable to Obtain Smoking Status: Never smoker - Past Family History Mother Family Medical History: No Reported History Father Family Medical History: No Reported History Medications and Allergies Home Medications Medication Instructions Recorded Confirmed Type Metoprolol Succinate [Toprol Xl] 50 mg PO DAILY@0800 10/27/17 09/30/21 History Spironolactone [Aldactone] 25 mg PO DAILY@0800 10/27/17 09/30/21 History Haloperidol Decanoate [Haldol D] 50 mg IM Q30D 02/18/18 09/30/21 History Menthol [Biofreeze] 1 applic TOPICAL QID PRN 02/18/18 09/30/21 History Diclofenac Sodium Gel [Voltaren 2 gm TOPICAL TID@0800,1500,199909/30/21 09/30/21 History Gel] Folic Acid 0.4mg 0.4 mg PO HS@199909/30/21 09/30/21 History Lactulose 20 gm PO HS@199909/30/21 09/30/21 History Melatonin 3 mg PO HS@199909/30/21 09/30/21 History QUEtiapine [SEROquel] 50 mg PO BID@0800,199909/30/21 09/30/21 History Sennosides/Docusate Sodium [Senna 2 tab PO HS@199909/30/21 09/30/21 History Plus 8.6-50 mg Tablet] hydroCHLOROthiazide [Hydrodiuril] 25 mg PO DAILY@0800 09/30/21 09/30/21 History Allergies Allergy/AdvReac Type Severity Reaction Status Date / Time No Known Allergies Allergy Verified 09/30/21 12:38 Physical Exam Vitals: Vital Signs Temp Pulse Resp BP Pulse Ox 09/30/21 15:29 97.8 F 55 L 121/62 09/30/21 10:34 98.0 F 63 18 128/74 96 Intake and Output 09/30/21 09/30/21 09/30/21 06:59 14:59 22:59 Other: Weight 77.111 kg Results CBC & Chem 7: 09/30/21 10:49 09/30/21 10:49 Labs: Abnormal Lab Results - Last 24 Hours (Table) 09/30/21 09/30/21 Range/Units 10:49 10:49 Sodium 125 L (137-145) mmol/L Chloride 92 L (98-107) mmol/L Glucose 108 H (74-99) mg/dL Osmolality 264 L (280-301) mosm/kg Thrombosis Risk Factor Assmnt - Choose All That Apply Any of the Below Risk Factors Present?: Yes Each Factor Represents 1 point: Obesity (BMI >25) Other Risk Factors: Yes Each Risk Factor Represents 3 Points: Age 75 years or older Other congenital or acquired thrombophilia - If yes, enter type in comment: No Thrombosis Risk Factor Assessment Total Risk Factor Score: 4 Thrombosis Risk Factor Assessment Level: Moderate Risk
[2021-09-30] MEDS: SODIUM CHLORIDE TAB 1 GM TAB PO SCH ×2 (16:39→20:37)
[2021-09-30] MEDS: ENOXAPARIN 40 MG/0.4 ML SYRINGE SQ SCH (16:39)
[2021-09-30] MEDS: MELATONIN 3 MG TABLET PO SCH (20:36)
[2021-09-30] MEDS: SENNOSIDES-DOCUSATE SODIUM 1 EACH TAB PO SCH (20:36)
[2021-09-30] MEDS: LACTULOSE 20 GM/30 ML CUP PO SCH (20:36)
[2021-09-30] MEDS: FOLIC ACID 1 MG TAB PO SCH (20:36)
[2021-09-30] MEDS: QUEtiapine 50 MG TAB PO SCH (20:37)
[2021-09-30] MEDS: DICLOFENAC SODIUM GEL 100 GM TUBE TOPICAL SCH (20:38)
[2021-10-01] MEDS: SODIUM CHLORIDE 0.9% 1,000 ML IV SCH ×3 (00:48→16:03)
[2021-10-01 07:36] LABS: African American GFR (CKD) 75 (>60 ml/min/1.73 sqM); Anion Gap 9 mmol/L; Blood Urea Nitrogen 12 mg/dL (7-17); Calcium 8.7 mg/dL (8.4-10.2); Carbon Dioxide 23 mmol/L (22-30); Chloride 102 mmol/L (98-107); Glucose 105 mg/dL (74-99); Non-African American GFR(CKD) 65 (>60 ml/min/1.73 sqM); Potassium 3.6 mmol/L (3.5-5.1); Sodium 134 mmol/L (137-145)
[2021-10-01] MEDS: METOPROLOL SUCCINATE (ER) 50 MG TAB.ER.24H PO SCH (08:18)
[2021-10-01] MEDS: SODIUM CHLORIDE TAB 1 GM TAB PO SCH ×3 (08:18→19:35)
[2021-10-01] MEDS: QUEtiapine 50 MG TAB PO SCH ×2 (08:18→19:33)
[2021-10-01] MEDS: ENOXAPARIN 40 MG/0.4 ML SYRINGE SQ SCH (08:19)
[2021-10-01] MEDS: DICLOFENAC SODIUM GEL 100 GM TUBE TOPICAL SCH ×3 (08:21→19:33)
--- NOTE | 2021-10-01 16:14 | P.PN ---
Progress Note - Text Progress Note Date: 10/01/21 Chief Complaint: Low-sodium This is a 76-year-old patient who follows with visiting physicians Dr. Amos. Chronic stable medical conditions include essential hypertension, schizophrenia, primary osteoarthritis. Patient is resident of [facility]. EMS was called out as patient complaining of pain in the right foot for last 2 days. Pain is more near the toes. Patient does seem to use a cane at times. Decreased appetite. Patient discovered to have a sodium of 125 in the ER. And a serum osmolality of 264. Denies any obvious nausea and vomiting. No fever no chills. Denies any obvious injury. This answered questions slowly. Admitted with hypoosmolar, hyponatremia. Right foot pain felt to be arthritis. Started on fluid restriction, saline. October 01: Oral intake better. Sodium coming up at her serum osmolality better. Sleeve ordered for right foot. Active Medications Acetaminophen (Acetaminophen Tab 325 Mg Tab) 650 mg PO Q6HR PRN PRN Reason: Mild Pain or Fever > 100.5 Calcium Carbonate/Glycine (Calcium Carbonate 500 Mg Chewable) 1,000 mg PO Q4HR PRN PRN Reason: Dyspepsia Diclofenac Sodium (Diclofenac Sodium Gel 100 Gm Tube) 2 gm TOPICAL TID@0800,1499,1999 [facility]; Protocol Last Admin: 10/01/21 16:00 Dose: 2 gm Enoxaparin Sodium (Enoxaparin 40 Mg/0.4 Ml Syringe) 40 mg SQ DAILY [facility] Last Admin: 10/01/21 08:19 Dose: 40 mg Folic Acid (Folic Acid 1 Mg Tab) 0.5 mg PO HS@1999 [facility] Last Admin: 09/30/21 20:36 Dose: 0.5 mg Sodium Chloride (Saline 0.9%) 1,000 mls @ 100 mls/hr IV .Q10H [facility] Last Admin: 10/01/21 16:03 Dose: Not Given Lactulose (Lactulose 20 Gm/30 Ml Cup) 20 gm PO HS@1999 [facility] Last Admin: 09/30/21 20:36 Dose: 20 gm Melatonin (Melatonin 3 Mg Tablet) 3 mg PO HS@1999 [facility] Last Admin: 09/30/21 20:36 Dose: 3 mg Metoprolol Succinate (Metoprolol Succinate (Er) 50 Mg Tab.Er.24h) 50 mg PO DAILY@0800 [facility] Last Admin: 10/01/21 08:18 Dose: 50 mg Naloxone HCl (Naloxone 0.4 Mg/Ml 1 Ml Vial) 0.2 mg IV Q2M PRN PRN Reason: Opioid Reversal Ondansetron HCl (Ondansetron 4 Mg/2 Ml Vial) 4 mg IVP Q8HR PRN PRN Reason: Nausea And Vomiting Quetiapine Fumarate (Quetiapine 50 Mg Tab) 50 mg PO BID@799,1999 [facility] Last Admin: 10/01/21 08:18 Dose: 50 mg Senna/Docusate Sodium (Sennosides-Docusate Sodium 1 Each Tab) 2 each PO HS@1999 [facility] Last Admin: 09/30/21 20:36 Dose: 2 each Sodium Chloride (Sodium Chloride Tab 1 Gm Tab) 2 gm PO TID [facility] Last Admin: 10/01/21 15:59 Dose: 2 gm Past medical history include: Osteoarthritis, schizophrenia, hypertension, latent TB Social history: No history of smoking or alcohol. Lives at [facility]. Family history: Reviewed, noncontributory to presentation Physical examination: VITAL SIGNS: 98, 65, 17, 1:30/70, 98% room air GENERAL: Declining in bed, awake EYES: Pupils equal. Conjunctiva normal. HEENT: External appearance of nose and ears normal, oral cavity dry mucous membranes. NECK: JVD not raised; masses not palpable. HEART: First and second heart sounds are normal; no edema. LUNGS: Respiratory rate normal; clear to auscultation. ABDOMEN: Soft, nontender, liver spleen not palpable, no masses palpable. PSYCH: Answers questions slowly. Mood and affect flatl. MUSCULOSKELETAL:No Clubbing/cyanosis;muscles-grossly intact. Evidence of OA. INVESTIGATIONS, reviewed in the clinical context: October 01: Sodium 134 potassium 3.6 creatinine 0.87 serum osmolality 277 White count 7.7 hemoglobin 12.8 platelets 327 sodium 125 potassium 4.2 BUN 17 creatinine 1.02 serum osmolality 264 urine osmolality 238 EKG tracing personally reviewed by me-normal sinus rhythm. Rate 61 Foot x-ray film personally reviewed by me: Possibly early OA. Assessment and plan: -Hypoosmolar, hyponatremia, possibly hypovolemic. Patient is dry mucous membrane.: Better normal saline. Restrict free fluid. . Salt tablets.. Repeat labs in the morning. DC hydrochlorothiazide. Hold Aldactone. -Right foot early osteoarthritis. We will advise comfortable footwear. Tylenol. Warm compress to right foot when necessary. Sleeve -Essential hypertension Toprol-XL 50 mg twice a day -Chronic schizophrenia Seroquel 50 mg twice a day. -Chronic insomnia Melatonin 3 mg daily at bedtime -Primary osteoarthritis Tylenol when necessary. Voltaren gel Free fluid avoid. Normal saline. Sodium tablets discontinue.. Repeat labs
[2021-10-01] MEDS: FOLIC ACID 1 MG TAB PO SCH (19:33)
[2021-10-01] MEDS: MELATONIN 3 MG TABLET PO SCH (19:33)
[2021-10-01] MEDS: LACTULOSE 20 GM/30 ML CUP PO SCH (19:33)
[2021-10-01] MEDS: SENNOSIDES-DOCUSATE SODIUM 1 EACH TAB PO SCH (19:33)
[2021-10-02] MEDS: SODIUM CHLORIDE 0.9% 1,000 ML IV SCH (05:43)
[2021-10-02 06:23] LABS: African American GFR (CKD) 77 (>60 ml/min/1.73 sqM); Anion Gap 7 mmol/L; Blood Urea Nitrogen 13 mg/dL (7-17); Calcium 8.2 mg/dL (8.4-10.2); Carbon Dioxide 21 mmol/L (22-30); Chloride 105 mmol/L (98-107); Glucose 92 mg/dL (74-99); Non-African American GFR(CKD) 67 (>60 ml/min/1.73 sqM); Potassium 3.7 mmol/L (3.5-5.1); Sodium 133 mmol/L (137-145)
[2021-10-02 08:06] VITALS: BP 122/71; PULSE 89; RESP 15; TEMP 99.3
[2021-10-02] MEDS: SODIUM CHLORIDE TAB 1 GM TAB PO SCH (08:18)
[2021-10-02] MEDS: QUEtiapine 50 MG TAB PO SCH (08:18)
[2021-10-02] MEDS: METOPROLOL SUCCINATE (ER) 50 MG TAB.ER.24H PO SCH (08:18)
[2021-10-02] MEDS: ENOXAPARIN 40 MG/0.4 ML SYRINGE SQ SCH (08:18)
[2021-10-02] MEDS: DICLOFENAC SODIUM GEL 100 GM TUBE TOPICAL SCH (08:19)
--- NOTE | 2021-10-02 15:46 | P.DS ---
Providers Date of admission: 09/30/21 12:14 Expected date of discharge: 10/02/21 Attending physician: Mahin Sutton Primary care physician: Marlon Amos [facility] Course: Chief Complaint: Low-sodium This is a 76-year-old patient who follows with visiting physicians Dr. Amos. Chronic stable medical conditions include essential hypertension, schizophrenia, primary osteoarthritis. Patient is resident of [facility]. EMS was called out as patient complaining of pain in the right foot for last 2 days. Pain is more near the toes. Patient does seem to use a cane at times. Decreased appetite. Patient discovered to have a sodium of 125 in the ER. And a serum osmolality of 264. Denies any obvious nausea and vomiting. No fever no chills. Denies any obvious injury. This answered questions slowly. Admitted with hypoosmolar, hyponatremia. Right foot pain felt to be arthritis. Started on fluid restriction, saline. October 01: Oral intake better. Sodium coming up at her serum osmolality better. Sleeve ordered for right foot. October 02: Right foot pain better with sleeve. Discussed with patient. Patient to have 1 tablet of sodium daily. Fluid restriction. Follow-up labs outpatient. Aldactone and hydrochlorothiazide discontinued Past medical history include: Osteoarthritis, schizophrenia, hypertension, latent TB Social history: No history of smoking or alcohol. Lives at [facility]. Family history: Reviewed, noncontributory to presentation Physical examination: VITAL SIGNS: 99.3, 89, 15, 122/71, 98% room air GENERAL: reclining in bed, awake EYES: Pupils equal. Conjunctiva normal. HEENT: External appearance of nose and ears normal, oral cavity dry mucous membranes. NECK: JVD not raised; masses not palpable. HEART: First and second heart sounds are normal; no edema. LUNGS: Respiratory rate normal; clear to auscultation. ABDOMEN: Soft, nontender, liver spleen not palpable, no masses palpable. PSYCH: Answers questions slowly. Mood and affect flatl. MUSCULOSKELETAL:No Clubbing/cyanosis;muscles-grossly intact. Evidence of OA. INVESTIGATIONS, reviewed in the clinical context: October 02: Sodium 133 progression 3.7 serum osmolality 276 October 01: Sodium 134 potassium 3.6 creatinine 0.87 serum osmolality 277 White count 7.7 hemoglobin 12.8 platelets 327 sodium 125 potassium 4.2 BUN 17 creatinine 1.02 serum osmolality 264 urine osmolality 238 EKG tracing personally reviewed by me-normal sinus rhythm. Rate 61 Foot x-ray film personally reviewed by me: Possibly early OA. Assessment and plan: -Hypoosmolar, hyponatremia, possibly hypovolemic. Better normal saline. Restrict free fluid. . Salt tablets daily.. DC hydrochlorothiazide. DC Aldactone. -Right foot early osteoarthritis. comfortable footwear. Tylenol. 6 Sleeve -Essential hypertension Toprol-XL 50 mg twice a day -Chronic schizophrenia Seroquel 50 mg twice a day. -Chronic insomnia Melatonin 3 mg daily at bedtime -Primary osteoarthritis Tylenol when necessary. Voltaren gel Disposition: [facility] Patient Condition at Discharge: Fair Plan - Discharge Summary Discharge Rx Participant: No New Discharge Prescriptions: New Sodium Chloride Tab 2 gm PO DAILY #30 tab Continue Metoprolol Succinate [Toprol Xl] 50 mg PO DAILY@0800 Menthol [Biofreeze] 1 applic TOPICAL QID PRN PRN Reason: Left upper arm pain Haloperidol Decanoate [Haldol D] 50 mg IM Q30D Sennosides/Docusate Sodium [Senna Plus 8.6-50 mg Tablet] 2 tab PO HS@1999 Melatonin 3 mg PO HS@1999 Lactulose 20 gm PO HS@1999 Folic Acid 0.4mg 0.4 mg PO HS@1999 QUEtiapine [SEROquel] 50 mg PO BID@08,1999 Diclofenac Sodium Gel [Voltaren Gel] 2 gm TOPICAL TID@0800,1499,1999 Discontinued Spironolactone [Aldactone] 25 mg PO DAILY@0800 hydroCHLOROthiazide [Hydrodiuril] 25 mg PO DAILY@0800 Discharge Medication List Metoprolol Succinate [Toprol Xl] 50 mg PO DAILY@0800 10/27/17 [History] Haloperidol Decanoate [Haldol D] 50 mg IM Q30D 02/18/18 [History] Menthol [Biofreeze] 1 applic TOPICAL QID PRN 02/18/18 [History] Diclofenac Sodium Gel [Voltaren Gel] 2 gm TOPICAL TID@0800,1500,199909/30/21 [History] Folic Acid 0.4mg 0.4 mg PO HS@199909/30/21 [History] Lactulose 20 gm PO HS@199909/30/21 [History] Melatonin 3 mg PO HS@199909/30/21 [History] QUEtiapine [SEROquel] 50 mg PO BID@0800,199909/30/21 [History] Sennosides/Docusate Sodium [Senna Plus 8.6-50 mg Tablet] 2 tab PO HS@199909/30/21 [History] Sodium Chloride Tab 2 gm PO DAILY #30 tab 10/02/21 [Rx] Follow up Appointment(s)/Referral(s): Marlon Amos MD [Primary Care Provider] - 1-2 days Patient Instructions/Handouts: Hyponatremia (DC) Activity/Diet/Wound Care/Special Instructions: *Call [facility] at discharge to go over paperwork: [phone]. fluid restriction 1800 cc/day Discharge Disposition: HOME SELF-CARE
== END 2021-10-02 12:49 | disposition home or self-care (01) | DRG 641 ==
LOC: EC 10:29 → 5NMEDONC 12:14 → 4SSUR 14:55
PROVIDERS: ADMIT Hospitalist; ATTEND Hospitalist
DX: E87.1 Hypo-osmolality and hyponatremia (principal); E86.1 Hypovolemia; M19.071 Primary osteoarthritis, right ankle and foot; I10 Essential (primary) hypertension; F20.9 Schizophrenia, unspecified; F51.04 Psychophysiologic insomnia; Z79.899 Other long term (current) drug therapy; Z86.15 Personal history of latent tuberculosis infection
CPT/HCPCS: 36415; 80048; 83930; 83935; 84443; 85025; 93005; 96360; 99285

== ENCOUNTER 2021-11-03 08:15 | Emergency (ER) | payer MEDICARE, OTHER ==
[2021-11-03] MEDS ORDERED: SODIUM CHLORIDE 0.9% 1,000 ML IV STA (08:18)
[2021-11-03] MEDS ORDERED: SODIUM CHLORIDE 0.9% 500 ML 500 ML IV STA ×2 (08:18→10:20)
--- NOTE | 2021-11-03 08:24 | ED ---
General Adult HPI - General Stated complaint: hypertension Time Seen by Provider: 11/03/21 08:15 Source: patient, EMS, RN notes reviewed Mode of arrival: EMS - History of Present Illness Initial comments: 76-year-old female history of hypertension who comes from the assisted-living facility with reports of elevated blood pressure. He was found on morning rounds have a blood pressure 200/112. No reports of fevers chills nausea vomiting sweats headache or other symptoms reported. Paramedics did think she looked as if she may be somewhat dehydrated. - Related Data Home Medications Medication Instructions Recorded Confirmed Metoprolol Succinate [Toprol Xl] 50 mg PO DAILY@0800 10/27/17 11/03/21 Menthol [Biofreeze] 1 applic TOPICAL QID PRN 02/18/18 11/03/21 Diclofenac Sodium Gel [Voltaren 2 gm TOPICAL TID@0800,1499,199909/30/21 11/03/21 Gel] Lactulose 20 gm PO HS@199909/30/21 11/03/21 Melatonin 3 mg PO HS@199909/30/21 11/03/21 QUEtiapine [SEROquel] 50 mg PO BID@0800,199909/30/21 11/03/21 Sennosides/Docusate Sodium [Senna 2 tab PO HS@199909/30/21 11/03/21 Plus 8.6-50 mg Tablet] Folic Acid 0.4 mg PO HS@199911/03/21 11/03/21 Previous Rx's Medication Instructions Recorded Magnesium Oxide [Magnesium] 500 mg PO DAILY #14 cap 11/03/21 Potassium Chloride ER [K-Dur 20] 20 meq PO DAILY #28 tab 11/03/21 cloNIDine HCL [Catapres] 0.1 mg PO BID #60 tab 11/03/21 Allergies Allergy/AdvReac Type Severity Reaction Status Date / Time No Known Allergies Allergy Verified 11/03/21 08:48 Review of Systems ROS Statement: Those systems with pertinent positive or pertinent negative responses have been documented in the HPI. ROS Other: All systems not noted in ROS Statement are negative. Past Medical History Past Medical History: Hypertension, Osteoarthritis (OA) Additional Past Medical History / Comment(s): Latent TB/unable to take PPD/chest xrays are negative. History of Any Multi-Drug Resistant Organisms: None Reported Past Surgical History: Unable to Obtain Past Anesthesia/Blood Transfusion Reactions: Unable to Obtain Smoking Status: Never smoker - Past Family History Mother Family Medical History: No Reported History Father Family Medical History: No Reported History General Exam - General Exam Comments Initial Comments: This a well-developed elderly female who is awake alert oriented times General appearance: alert, in no apparent distress Head exam: Present: atraumatic, normocephalic, normal inspection Eye exam: Present: normal appearance, PERRL, EOMI. Absent: scleral icterus, c onjunctival injection, periorbital swelling ENT exam: Present: mucous membranes dry Neck exam: Present: normal inspection. Absent: tenderness, meningismus, lymphadenopathy Respiratory exam: Present: normal lung sounds bilaterally. Absent: respiratory distress, wheezes, rales, rhonchi, stridor Cardiovascular Exam: Present: regular rate, normal rhythm, normal heart sounds. Absent: systolic murmur, diastolic murmur, rubs, gallop, clicks GI/Abdominal exam: Present: soft, normal bowel sounds. Absent: distended, tenderness, guarding, rebound, rigid Extremities exam: Present: normal inspection, full ROM, normal capillary refill. Absent: tenderness, pedal edema, joint swelling, calf tenderness Back exam: Present: normal inspection Neurological exam: Present: alert, oriented X3, CN II-XII intact Psychiatric exam: Present: normal affect, normal mood Skin exam: Present: warm, dry, intact, normal color. Absent: rash Course Vital Signs 11/03/21 11/03/21 11/03/21 08:21 08:48 10:43 Temperature 98.6 F Pulse Rate 79 75 53 L Respiratory 16 16 16 Rate Blood Pressure 190/107 200/109 188/86 O2 Sat by Pulse 99 99 99 Oximetry 11/03/21 11/03/21 11:37 12:20 Temperature 98 F Pulse Rate 60 100 Respiratory 18 16 Rate Blood Pressure 189/102 154/87 O2 Sat by Pulse 96 100 Oximetry EKG Findings - EKG Results: EKG: interpreted by PAOLA, sinus rhythm (Sinus rhythm a 71 HI interval 163 QRS duration 82 QT/QTC 394/417 left exodeviation nonspecific T-wave configuration) Medical Decision Making - Medical Decision Making The patient finally did respond to IV fluids as well as IV medication and oral to supplemental magnesium and potassium as well as fluid Completion. Blood pressure did improve after alpha blockers review the. Patient be discharged with prescriptions for potassium and magnesium as well as alpha blockade. - Lab Data Result diagrams: 11/03/21 08:31 11/03/21 08:31 Lab Results 11/03/21 11/03/21 11/03/21 Range/Units 08:31 08:31 08:31 WBC 6.7 (3.8-10.6) k/uL RBC 4.66 (3.80-5.40) m/uL Hgb 12.5 (11.4-16.0) gm/dL Hct 39.4 (34.0-46.0) % MCV 84.5 (80.0-100.0) fL MCH 26.7 (25.0-35.0) pg MCHC 31.7 (31.0-37.0) g/dL RDW 14.5 (11.5-15.5) % Plt Count 314 (150-450) k/uL MPV 6.8 Neutrophils % 66 % Lymphocytes % 26 % Monocytes % 4 % Eosinophils % 2 % Basophils % 1 % Neutrophils # 4.5 (1.3-7.7) k/uL Lymphocytes # 1.8 (1.0-4.8) k/uL Monocytes # 0.3 (0-1.0) k/uL Eosinophils # 0.1 (0-0.7) k/uL Basophils # 0.0 (0-0.2) k/uL Sodium 142 (137-145) mmol/L Potassium 2.7 L* (3.5-5.1) mmol/L Chloride 110 H (98-107) mmol/L Carbon Dioxide 22 (22-30) mmol/L Anion Gap 10 mmol/L BUN 9 (7-17) mg/dL Creatinine 0.84 (0.52-1.04) mg/dL Est GFR (CKD-EPI)AfAm 78 (>60 ml/min/1.73 sqM) Est GFR (CKD-EPI)NonAf 67 (>60 ml/min/1.73 sqM) Glucose 95 (74-99) mg/dL Calcium 7.7 L (8.4-10.2) mg/dL Magnesium 1.4 L (1.6-2.3) mg/dL Total Bilirubin 0.1 L (0.2-1.3) mg/dL AST 14 (14-36) U/L ALT 10 (4-34) U/L Alkaline Phosphatase 85 (38-126) U/L Total Creatine Kinase (30-135) U/L CK-MB (CK-2) (0.0-2.4) ng/mL CK-MB (CK-2) Rel Index Troponin I (0.000-0.034) ng/mL Total Protein 6.0 L (6.3-8.2) g/dL Albumin 3.3 L (3.5-5.0) g/dL Urine Color Colorless Urine Appearance Clear (Clear) Urine pH 6.0 (5.0-8.0) Ur Specific [place] 1.003 (1.001-1.035) Urine Protein Negative (Negative) Urine Glucose (UA) Negative (Negative) Urine Ketones Negative (Negative) Urine Blood Negative (Negative) Urine Nitrite Negative (Negative) Urine Bilirubin Negative (Negative) Urine Urobilinogen <2.0 (<2.0) mg/dL Ur Leukocyte Esterase Moderate H (Negative) Urine WBC 4 (0-5) /hpf Ur Squamous Epith Cells 2 (0-4) /hpf Urine Bacteria Rare H (None) /hpf 11/03/21 Range/Units 08:31 WBC (3.8-10.6) k/uL RBC (3.80-5.40) m/uL Hgb (11.4-16.0) gm/dL Hct (34.0-46.0) % MCV (80.0-100.0) fL MCH (25.0-35.0) pg MCHC (31.0-37.0) g/dL RDW (11.5-15.5) % Plt Count (150-450) k/uL MPV Neutrophils % % Lymphocytes % % Monocytes % % Eosinophils % % Basophils % % Neutrophils # (1.3-7.7) k/uL Lymphocytes # (1.0-4.8) k/uL Monocytes # (0-1.0) k/uL Eosinophils # (0-0.7) k/uL Basophils # (0-0.2) k/uL Sodium (137-145) mmol/L Potassium (3.5-5.1) mmol/L Chloride (98-107) mmol/L Carbon Dioxide (22-30) mmol/L Anion Gap mmol/L BUN (7-17) mg/dL Creatinine (0.52-1.04) mg/dL Est GFR (CKD-EPI)AfAm (>60 ml/min/1.73 sqM) Est GFR (CKD-EPI)NonAf (>60 ml/min/1.73 sqM) Glucose (74-99) mg/dL Calcium (8.4-10.2) mg/dL Magnesium (1.6-2.3) mg/dL Total Bilirubin (0.2-1.3) mg/dL AST (14-36) U/L ALT (4-34) U/L Alkaline Phosphatase (38-126) U/L Total Creatine Kinase 38 (30-135) U/L CK-MB (CK-2) <0.2 (0.0-2.4) ng/mL CK-MB (CK-2) Rel Index Troponin I <0.012 (0.000-0.034) ng/mL Total Protein (6.3-8.2) g/dL Albumin (3.5-5.0) g/dL Urine Color Urine Appearance (Clear) Urine pH (5.0-8.0) Ur Specific [place] (1.001-1.035) Urine Protein (Negative) Urine Glucose (UA) (Negative) Urine Ketones (Negative) Urine Blood (Negative) Urine Nitrite (Negative) Urine Bilirubin (Negative) Urine Urobilinogen (<2.0) mg/dL Ur Leukocyte Esterase (Negative) Urine WBC (0-5) /hpf Ur Squamous Epith Cells (0-4) /hpf Urine Bacteria (None) /hpf Disposition Clinical Impression: Dehydration, Accelerated hypertension, Hypokalemia, Hypomagnesemia syndrome Disposition: HOME SELF-CARE Condition: Good Instructions (If sedation given, give patient instructions): Dizziness (ED), Hypertension (ED), Hypokalemia (ED), Hypomagnesemia (ED), Dehydration (ED) Prescriptions: cloNIDine HCL [Catapres] 0.1 mg PO BID #60 tab Potassium Chloride ER [K-Dur 20] 20 meq PO DAILY #28 tab Magnesium Oxide [Magnesium] 500 mg PO DAILY #14 cap Is patient prescribed a controlled substance at d/c from ED?: No Referrals: Marlon Amos MD [Primary Care Provider] - 1-2 days Decision Date: 11/03/21 Decision Time: 13:00
[2021-11-03 08:46] LABS: Basophils % (A) 1 %; Eosinophils # (A) 0.1 k/uL (0-0.7); Eosinophils % (A) 2 %; HCT 39.4 % (34.0-46.0); HGB 12.5 gm/dL (11.4-16.0); Lymphocytes # (A) 1.8 k/uL (1.0-4.8); Lymphocytes % (A) 26 %; MCH 26.7 pg (25.0-35.0); MCHC 31.7 g/dL (31.0-37.0); MCV 84.5 fL (80.0-100.0); Mean Platelet Volume 6.8; Monocytes # (A) 0.3 k/uL (0-1.0); Monocytes % (A) 4 %; Neutrophils # (A) 4.5 k/uL (1.3-7.7); Neutrophils % (A) 66 %; Platelet Count 314 k/uL (150-450); RBC 4.66 m/uL (3.80-5.40); RDW 14.5 % (11.5-15.5); WBC 6.7 k/uL (3.8-10.6)
[2021-11-03 08:58] LABS: Albumin 3.3 g/dL (3.5-5.0); Calcium 7.7 mg/dL (8.4-10.2); Magnesium 1.4 mg/dL (1.6-2.3); Total Bilirubin 0.1 mg/dL (0.2-1.3)
[2021-11-03 09:01] LABS: Creatine Kinase 38 U/L (30-135)
[2021-11-03 09:02] LABS: Potassium 2.7 mmol/L (3.5-5.1)
[2021-11-03 09:12] LABS: Creatine Kinase MB <0.2 ng/mL (0.0-2.4); Troponin I <0.012 ng/mL (0.000-0.034)
[2021-11-03] MEDS ORDERED: MAGNESIUM SULFATE-D5W PMX 1 GM in DEXTROSE/WATER 1 100ML.BAG IVPB ONE (09:25)
[2021-11-03] MEDS ORDERED: POTASSIUM CHLORIDE ER 20 MEQ TAB.ER PO STA (09:25)
[2021-11-03] MEDS ORDERED: POTASSIUM CHLORIDE 10 MEQ in WATER FOR INJECTION 1 100ML.BAG IVPB STA (09:29)
[2021-11-03 09:39] LABS: Appearance,Urine Clear (Clear); Bacteria,Urine Rare /hpf; Bilirubin,Urine Negative (Negative); Blood,Urine Negative (Negative); Color,Urine Colorless; Glucose,Urine (UA) Negative (Negative); Ketones,Urine Negative (Negative); Leukocyte Esterase,Urine Moderate (Negative); Nitrite,Urine Negative (Negative); Protein,Urine Negative (Negative); Specific Gravity,Urine 1.003 (1.001-1.035); Squamous Epithelial Cell,Urine 2 /hpf (0-4); Urobilinogen,Urine <2.0 mg/dL (<2.0); WBC,Urine 4 /hpf (0-5)
[2021-11-03] MEDS ORDERED: METOPROLOL SUCCINATE (ER) 25 MG TAB.ER.24H PO STA (10:20)
[2021-11-03] MEDS ORDERED: METOPROLOL TARTRATE 5 MG/5 ML VIAL IVP STA (10:22)
[2021-11-03] MEDS ORDERED: hydrALAZINE HCL 20 MG/ML 1 ML VIAL IVP STA (11:38)
[2021-11-03 14:07] VITALS: BP 147/91; PULSE 56; RESP 18; TEMP 97.7
== END 2021-11-03 14:27 | disposition home or self-care (01) ==
LOC: EC 08:15
DX: R03.0 Elevated blood-pressure reading, without diagnosis of hypertension (principal); E86.0 Dehydration; E87.6 Hypokalemia; E83.42 Hypomagnesemia
CPT/HCPCS: 36415; 93005; 80053; 82550; 82553; 83735; 84484; 85025; 81001; 99284; 96365; 96367; 96361; 96375; J0360; J3475; J3480